=== PATIENT | male | born 1950 | race Caucasian/White ===

== ENCOUNTER 2017-06-11 21:44 | Inpatient (IN) | payer OTHER ==
--- NOTE | 2017-06-11 21:58 | EDPHY ---
H & P Stated Complaint: CHEST DISCOMFORT X 1-2 MONTHS HPI/ROS: HPI CHIEF COMPLAINT: Chest pain HISTORY OF PRESENT ILLNESS: This patient very pleasant 66-year-old male, significant past medical history for hypertension, he presents emergency room chest discomfort. Patient reports to me that over the past 2 months he has noticed intermittent chest discomfort. He notices it worse when he goes to lay down. Of note today he developed chest discomfort he describes it as uncomfortable sensation in his chest it did not radiate anywhere. He was extremely fatigued today he states he normally is not fatigued all. States that he help stack his neighbors wood today and became extremely fatigued after 3 wheel barrel's worth. This is unlikely him. He states his discomfort for approximately 6 hours today. He states over the past 2 months he has had this intermittently. He is due to see his cpc last week however his appointment was canceled in moved from 2 Wednesdays from now. Given the discomfort and fatigue decided come the emergency room. He is now chest pain- free. Denies any pleuritic pain. Denies shortness of breath. Denies recent illness. No abnormal leg swelling. Denies pain going anywhere. Past Medical History: Hypertension Past Surgical History: No recent surgery Social History: Drinks 4 beers per evening smokes very little marijuana, no current tobacco use. Family History: Denies ROS REVIEW OF SYSTEMS: A comprehensive 10 point review of systems is otherwise negative aside from elements mentioned in the history of present illness. Exam Constitutional appears well, nontoxic, triage nursing summary reviewed, vital signs reviewed, awake/alert. Blood pressure noted at triage to be high. Eyes normal conjunctivae and sclera, EOMI, PERRLA. HENT normal inspection, atraumatic, moist mucus membranes, no epistaxis, neck supple/ no meningismus, no raccoon eyes. Respiratory clear to auscultation bilaterally, normal breath sounds, no respiratory distress, no wheezing. Cardiovascular rate normal, regular rhythm, no murmur, no edema, distal pulses normal. Gastrointestinal rather large abdomen, soft, non-tender, no rebound, no guarding, normal bowel sounds, no distension, no pulsatile mass. Genitourinary no CVA tenderness. Musculoskeletal no midline vertebral tenderness, full range of motion, no calf swelling, no tenderness of extremities, no meningismus, good pulses, neurovascularly intact. Skin pink, warm, & dry, no rash, skin atraumatic. Neurologic awake, alert and oriented x 3, AAOx3, moves all 4 extremities equally, motor intact, sensory intact, CN II-XII intact, normal cerebellar, normal vision, normal speech. Psychiatric normal mood/affect. Heme/Lymph/Immune no lymphadenopathy. 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 Full-dose aspirin given. Re-evaluation: EKG interpretation by me on record in [facility] system. Impression time of EKG 2208, this is sinus rhythm rate of 74. I do not appreciate acute ischemia specifically no ST elevation ST depression T-wave abnormalities or prolonged intervals. ED x-ray chest one view cardiomegaly present. Otherwise unremarkable chest x- ray. 2322: This patient be admitted to the hospital service for further cardiac evaluation ACS rule out. In the emergency room he has no chest pain. Was given full-dose aspirin. His x-ray has been reviewed his EKG is nonischemic his troponin is negative. It is noted that he was hypertensive here in the emergency room. This trended downward without any intervention. He does tell me the blood pressures been chronically high. Despite taking losartan. I did recommend the patient that he gets blood pressure monitor at home as he does not have 1 week keep a close eye on his blood pressure. We need to continue to monitor his blood pressure. Source: Patient - Personal History Current Tetanus/Diphtheria Vaccine: Unsure Current Tetanus Diphtheria and Acellular Pertussis (TDAP): Unsure - Medical/Surgical History Hx Asthma: No Hx Chronic Respiratory Disease: No Hx Diabetes: No Hx Cardiac Disease: Yes Hx Renal Disease: No Hx Cirrhosis: No Hx Alcoholism: No Hx HIV/AIDS: No Hx Splenectomy or Spleen Trauma: No Other PMH: STRESS TEST 10/21. HTN, - Social History Smoking Status: Former smoker Constitutional: Initial Vital Signs Temperature (C) 37.0 C 06/11/17 21:47 Heart Rate 77 06/11/17 21:47 Respiratory Rate 18 06/11/17 21:47 O2 Sat (%) 96 06/11/17 21:47 O2 Delivery Mode Room Air Allergies/Adverse Reactions: No Known Allergies Allergy (Unverified 06/11/17 21:51) Home Medications: Medication Instructions Recorded Losartan Potassium [Cozaar 50 mg 100 mg PO DAILY 06/11/17 (*)] Aspirin [Aspirin 325 mg (*)] 325 mg PO DAILY 06/12/17 Ibuprofen [Motrin (*)] 200 mg PO DAILY PRN 06/12/17 Medical Decision Making - Data Points Laboratory Results: Laboratory Results 06/11/17 22:00 06/11/17 22:00 Medications Given: Aspirin (Aspirin) 325 mg PO DAILY ADELINE Stop: 12/09/17 09:14 Last Admin: 06/12/17 10:10 Dose: 325 mg Hydralazine HCl (Apresoline) 10 mg IVP Q1HR PRN PRN Reason: SBP Greater Than Stop: 12/09/17 00:30 Last Admin: 06/12/17 00:44 Dose: 10 mg Heparin Sodium (Porcine) (Heparin 50 Units/Ml (Premix)) 500 mls @ 0 mls/hr IV CONT ADELINE; Per Protocol PRN Reason: Protocol Stop: 12/09/17 17:44 Last Admin: 06/12/17 19:11 Dose: 500 mls Lorazepam (Ativan) 0.5 - 1 mg PO Q8HRS PRN PRN Reason: Anxiety, Able to Take PO Stop: 12/08/17 23:46 Last Admin: 06/12/17 02:11 Dose: 1 mg Losartan Potassium (Cozaar) 100 mg PO DAILY ADELINE Stop: 12/09/17 08:59 Last Admin: 06/12/17 08:26 Dose: 100 mg Nitroglycerin (Nitrostat) 0.4 mg SL Q5M PRN PRN Reason: Chest Pain Stop: 12/08/17 23:48 Last Admin: 06/12/17 01:38 Dose: 0.4 mg Discontinued Medications Aspirin (Aspirin) 324 mg PO EDNOW ONE Stop: 06/11/17 22:11 Last Admin: 06/11/17 22:42 Dose: 324 mg Diazepam (Valium) 5 mg PO ONCALL ONE Stop: 06/12/17 11:51 Last Admin: 06/12/17 17:12 Dose: Not Given Diphenhydramine HCl (Benadryl) 25 mg PO ONCALL ONE Stop: 06/12/17 11:51 Last Admin: 06/12/17 17:12 Dose: Not Given Enoxaparin Sodium (Lovenox) 40 mg SC DAILY ADELINE Stop: 12/09/17 08:59 Last Admin: 06/12/17 08:28 Dose: 40 mg Famotidine (Pepcid) 20 mg PO ONCALL ONE Stop: 06/12/17 11:51 Last Admin: 06/12/17 17:12 Dose: Not Given Heparin Sodium (Porcine) (Heparin Injection) 0 unit IVP ONCE ONE PRN Reason: Protocol Stop: 06/12/17 17:37 Last Admin: 06/12/17 19:10 Dose: 6.3 ml Nitroglycerin (Nitro-Bid 2%) 1 inch TP ONCE ONE Stop: 06/12/17 01:42 Last Admin: 06/12/17 01:50 Dose: 1 inch Departure - Departure Disposition: [facility] Inpatient Acute Clinical Impression: Chest pain Qualifiers: Chest pain type: unspecified Qualified Code(s): R07.9 - Chest pain, unspecified Hypertension Qualifiers: Hypertension type: essential hypertension Qualified Code(s): I10 - Essential ( primary) hypertension Condition: Fair
[2017-06-11] MEDS ORDERED: ASPIRIN 81 MG CHEWABLE TAB PO ONE (22:10)
--- NOTE | 2017-06-11 22:11 | CPEKG ---
Heart Rate: 74 RR Interval: 811 P-R Interval: 172 QRSD Interval: 86 QT Interval: 376 QTC Interval: 418 P [place]: 22 QRS [place]: -29 T Wave [place]: 60 EKG Severity - OTHERWISE NORMAL ECG - EKG Impression: SINUS RHYTHM EKG Impression: BORDERLINE LEFT AXIS DEVIATION Electronically Signed By: Wili Mccormack 12-Jun-2017 08:01:59
[2017-06-11 22:15] LABS: % IMMATURE GRANULYOCYTES 0.3 % (0.0-1.1); ABSOLUTE IMMATURE GRANULOCYTES 0.02 10^3/uL (0.00-0.10); ADD DIFF? NO; ADD MORPH? NO; ADD SCAN? NO; ATYPICAL LYMPHOCYTE FLAG 10 (0-99); FRAGMENT RBC FLAG 0 (0-99); HEMATOCRIT 49.7 % (40.0-51.0); HEMOGLOBIN 16.6 g/dL (13.7-17.5); LEFT SHIFT FLG 0 (0-99); LIPEMIA HEMOLYSIS FLAG 80 (0-99); MEAN CELL HEMOGLOBIN 29.1 pg (27.9-34.1); MEAN CELL HEMOGLOBIN CONCENTR. 33.4 g/dL (32.4-36.7); MEAN PLATELET VOLUME 9.3 fL (8.7-11.7); PLATELET CLUMPS FLAG 0 (0-99); PLATELET COUNT 229 10^3/uL (150-400); RED BLOOD CELL COUNT 5.71 10^6/uL (4.40-6.38)
[2017-06-11 22:31] LABS: INR 0.9 (0.83-1.16)
[2017-06-11 22:32] LABS: APTT 26.1 SEC (23.0-38.0)
[2017-06-11 22:34] LABS: ALANINE AMINOTRANSFERASE 41 IU/L (21-72); ALBUMIN 4.2 g/dL (3.5-5.0); ALKALINE PHOSPHATASE 79 IU/L (38-126); ANION GAP 12 mEq/L (8-16); ASPARTATE AMINOTRANSFERASE 25 IU/L (17-59); BILIRUBIN,TOTAL 0.6 mg/dL (0.1-1.4); BILIRUBIN-CONJUGATED 0.3 mg/dL (0.0-0.5); BILIRUBIN-UNCONJUGATED 0.3 mg/dL (0.0-1.1); CALCIUM 10.2 mg/dL (8.5-10.4); CARBON DIOXIDE 23 mEq/l (22-31); CHLORIDE 103 mEq/L (97-110); CREATININE 1.3 mg/dL (0.7-1.3); GLOMERULAR FILTRATION RATE 55; GLUCOSE 115 mg/dL (70-100); MAGNESIUM 2.1 mg/dL (1.6-2.3); POTASSIUM 4.1 mEq/L (3.5-5.2); SODIUM 138 mEq/L (134-144); TOTAL PROTEIN 7.6 g/dL (6.3-8.2)
[2017-06-11 22:43] LABS: TROPONIN I 0.014 ng/mL (0.000-0.034)
[2017-06-11] MEDS ORDERED: NS 1,000 ML IV SCH (23:45)
[2017-06-11] MEDS ORDERED: LORazepam 0.5 MG TAB PO PRN (23:47)
[2017-06-11] MEDS ORDERED: ACETAMINOPHEN 325 MG TAB PO PRN (23:47)
[2017-06-12] MEDS ORDERED: hydrALAZINE 20 MG/ML VIAL IVP PRN (00:31)
[2017-06-12] MEDS: NITROGLYCERIN 0.4 MG BTL SL PRN (01:38)
[2017-06-12] MEDS ORDERED: NITROGLYCERIN 2% 1 GM PACKET TP ONE (01:41)
[2017-06-12 05:31] LABS: % IMMATURE GRANULYOCYTES 0.2 % (0.0-1.1); ABSOLUTE IMMATURE GRANULOCYTES 0.01 10^3/uL (0.00-0.10); ADD DIFF? NO; ADD MORPH? NO; ADD SCAN? NO; ATYPICAL LYMPHOCYTE FLAG 10 (0-99); FRAGMENT RBC FLAG 0 (0-99); HEMATOCRIT 45.4 % (40.0-51.0); HEMOGLOBIN 15.2 g/dL (13.7-17.5); LEFT SHIFT FLG 0 (0-99); LIPEMIA HEMOLYSIS FLAG 80 (0-99); MEAN CELL HEMOGLOBIN 29.4 pg (27.9-34.1); MEAN CELL HEMOGLOBIN CONCENTR. 33.5 g/dL (32.4-36.7); MEAN CELL VOLUME 87.8 fL (81.5-99.8); MEAN PLATELET VOLUME 9.6 fL (8.7-11.7); PLATELET CLUMPS FLAG 0 (0-99); PLATELET COUNT 206 10^3/uL (150-400); RED BLOOD CELL COUNT 5.17 10^6/uL (4.40-6.38)
[2017-06-12 05:55] LABS: ANION GAP 9 mEq/L (8-16); CALCIUM 9.2 mg/dL (8.5-10.4); CARBON DIOXIDE 23 mEq/l (22-31); CHLORIDE 105 mEq/L (97-110); CREATININE 1.1 mg/dL (0.7-1.3); GLOMERULAR FILTRATION RATE > 60; GLUCOSE 128 mg/dL (70-100); POTASSIUM 3.9 mEq/L (3.5-5.2); SODIUM 137 mEq/L (134-144)
[2017-06-12 06:01] LABS: TROPONIN I 0.014 ng/mL (0.000-0.034)
--- NOTE | 2017-06-12 06:52 | GHP ---
[f rep st] HISTORY AND PHYSICAL DATE OF ADMISSION: 06/11/2017 The patient seen after midnight. CHIEF COMPLAINT: Chest pressure. HISTORY OF PRESENT ILLNESS: This is a very pleasant 66-year-old gentleman with past medical history significant for poorly controlled hypertension, obesity, who presents to the emergency department daron fine with complaints of worsening substernal pressure. Patient reports that he is unable to describe e xactly how the pain is feeling. The closest he can get is that it feels more like an aching pain. P andrzej reports that he has been experiencing intermittent chest discomfort and palpitations off and o n for the last 1-2 months. He was scheduled to follow up with Cardiology on Monday; however, to y, patient reports that he went to go help a neighbor stacking wood for the winter and during this ti me, patient developed more significant chest pain than he has experienced previously. It did not rad iate. He did not have any associated headache, changes in vision, lightheadedness, diaphoresis, or s hortness of breath. The patient denies any fevers or chills. The patient states that his chest pain did improve slightly after rest; however, , he continued to experience these symptoms, and [place], he felt he should be evaluated for his chest pa in. The patient does report he has had a stress test back in November of 2016, and it was reported to b e normal. Shortly after arrival to the medical floor, patient was complaining of chest pressure, 6/1 0, that was achy in nature, did not radiate, and no associated symptoms as above. Patient was given 1 nitroglycerin treatment sublingually in the emergency department with resolution of his chest pain temporarily. On the medical floor, patient again developed the substernal chest aching and denied an y other symptoms. It was also noted that patient's blood pressure was significantly elevated to the high 180s over 120s. The patient has been on losartan. He initially started off at a lower dose of 25 and has increased it twice to 50, and subsequently now on 100 without improvement in blood pressur es. Again, patient denies any shortness of breath, palpitations, headache, changes in vision, or lig htheadedness. REVIEW OF SYSTEMS: With the exception of , in which patient reports nocturia 2 or more times in e evening, remainder of review of systems is negative, except as noted above. ALLERGIES: No known drug allergies. HOME MEDICATIONS: Losartan 100 mg p.o. daily and aspirin 325 mg 1 tab p.o. daily. PAST MEDICAL HISTORY: Significant for benign essential hypertension, obesity, and occasional hay fev er. PAST SURGICAL HISTORY: Patient denies. FAMILY HISTORY: Significant for diabetes. SOCIAL HISTORY: The patient lives alone. He drinks 4 beers on a nightly basis. He has no history o f withdrawal symptoms. He does smoke occasional marijuana. The patient quit smoking 1-1/2 years ago and was previously smoking cigars. COR STATUS: His MD/POA is Pee Zimmerman, a friend, and patient states that his code status is full. PHYSICAL EXAMINATION: VITAL SIGNS: Upon arrival to the ER, blood pressure was 197/121, heart rate 7 5, respiratory rate 16, O2 saturation was 95% on room air, temperature was 37. On the hospital floor , blood pressure 175/100, heart rate 67, respiratory rate 16, O2 saturation 92% on room air, with a t emperature of 36.8. At bedside, after patient had received a sublingual nitroglycerin and also a nit roglycerin paste placement, his chest pain symptoms did resolve. The patient had noted some anxiety in addition. GENERAL: No acute distress. Pleasant, obese, elderly gentleman, who is resting quietl y on bed. HEAD: Normocephalic, atraumatic. EYES: Extraocular muscles grossly intact. Pupils equa l, round, and without any scleral icterus or conjunctival injection. ENT: Mucous membranes appear m oist. No pharyngeal erythema or exudates. NECK: Neck is supple. Trachea midline. CV: Patient wi th regular rate and rhythm. No murmurs, rubs, or gallops. Slightly distant heart sounds, likely sec ondary to body habitus. RESPIRATORY: Unlabored breathing. Lungs are clear to auscultation bilatera lly. No wheezes, rales, or rhonchi appreciated. ABDOMEN: Obese and protuberant, but not distended, soft. Positive bowel sounds. No rebound or guarding appreciated. : No Mariee in place. No supr apubic tenderness to palpation. EXTREMITIES: Patient with some maybe trace lower extremity edema. Patient with 1+ pedal pulses bilaterally. NEUROLOGIC: Grossly nonfocal exam. No facial drooping. Moves all extremities. Strength is 5/5 in upper and lower extremities. PSYCHIATRIC: Patient awake, alert, and oriented x4. He is pleasant, and thought process, content, and questions are appropriate . LABORATORY STUDIES: WBC 7.78, H and H 16.6 and 49.7, MCV 87, platelet count 229. No bands. PT is 12, INR 0.9, PTT is 26.1. Sodium is 138, potassium is 4.1, chloride 103, CO2 of 23, anion gap is 12, BUN 18, creatinine is 1.3, GFR 55,, glucose 115, calcium is 10.2. Magnesium is 2.1. Total bi lirubin is 0.6, ALT 41, AST 25, alkaline phosphatase 79. CK ordered for a.m. Troponin 0.014. BNP is 210. Total protein 7.6, albumin is 4.2, lipase 85. Chest x-ray: Image and report reviewed myself, showing mild cardiomegaly, poor inspiration with comp ressive changes in the lung bases. No consolidation, effusion. No evidence of pneumothorax. EKG, reviewed myself, showing normal sinus rhythm with a heart rate in the 70s. QTc is 410. Q-waves in aVL. No acute ST changes. ASSESSMENT/PLAN: Pleasant 66-year-old gentleman, who presents with complaints of intermittent chest pain with exertion. 1. Typical type symptoms; however, patient reports that he had a normal stress test in November and is followed by Cardiology. Suspect patient's chest pressure is related to his hypertensive urgency, as he reports his blood pressures have been more increasingly difficult to control, despite increase and quadrupling of his losartan from his initial dose. The patient would benefit from a secondary agent , but as he has some typical chest pain features and is followed by Cardiology, we will plan to repea t cardiac enzymes and further await recommendations. The patient would likely benefit from addition of a thiazide diuretic or beta sb. Currently, patient has responded quite well to nitroglycerin paste with resolution of his chest pain symptoms and improvement of his blood pressures. 2. Hypertensive urgency. Plan as above. 3. Anxiety. Ativan p.r.n. 4. Obesity. His lifestyle modifications were discussed with the patient and were highly recommended including weight loss and low-salt diet. 5. Daily alcohol consumption. Discussed with the patient and again counseled on lifestyle modificat ions and cessation. Patient is agreeable to this plan and will plan to stop drinking after discharge . Advised to monitor for any signs of withdrawal including tremor or increasing anxiety. Patient dr barbers 4 beers nightly. Again, Ativan is available p.r.n. 6. Fluids, electrolytes, nutrition. Continue with IV fluid overnight for gentle hydration. Electro lyte replacement p.r.n. and cardiac diet until midnight, and then n.p.o. 7. Prophylaxis. SCDs and Lovenox. DISPOSITION: Patient admitted to observation on the medical floor with continuous cardiac monitoring . Anticipate less than a 48-hour stay pending manageability of patient's blood pressures and new ant ihypertensive therapy as per Cardiology. /[id number]/MODL
[2017-06-12] MEDS: LOSARTAN POTASSIUM 50 MG TAB PO SCH (08:26)
[2017-06-12] MEDS ORDERED: ENOXAPARIN 40 MG/0.4 ML SYR SC SCH (09:00)
[2017-06-12] MEDS ORDERED: IBUPROFEN 200 MG TAB PO PRN (09:04)
[2017-06-12] MEDS: ASPIRIN 325 MG TAB PO SCH (10:10)
[2017-06-12] MEDS ORDERED: fentaNYL 100 MCG/2 ML INJ ONE (11:29)
[2017-06-12] MEDS ORDERED: LIDOCAINE 1% 300 MG/30 ML SDV ONE (11:29)
[2017-06-12] MEDS ORDERED: HEPARIN 10,000 UNIT/10 ML MDV ONE (11:30)
[2017-06-12] MEDS ORDERED: MIDAZOLAM 2 MG/2 ML VIAL ONE (11:30)
[2017-06-12] MEDS ORDERED: VERAPAMIL 5 MG/2 ML VIAL ONE (11:30)
[2017-06-12] MEDS ORDERED: IOPAMIDOL (ISOVUE-370) 150 ML BTL IV ONE (11:30)
--- NOTE | 2017-06-12 11:49 | PDHPUP ---
History & Physical Update H&P update statement: This history and physical update is based on an assessment of the patient which was completed after admission or registration (within 24 hours), but prior to the surgery/procedure. H&P update: H&P reviewed & patient examined, no change in patient's condition since H&P completed
--- NOTE | 2017-06-12 11:49 | PDPROPOC ---
Sedation Plan of Care Sedation Plan of Care: vital signs stable, mental status noted, patient educated of risks, benefits, alternatives, patient can tolerate sedation ASA Classification: ASA 2 Planned drugs: fentanyl, midazolam Mallampati Reference Image: Patient passed 3-3-2 rule?: No
[2017-06-12] MEDS ORDERED: FAMOTIDINE 20 MG TAB PO ONE (11:50)
[2017-06-12] MEDS ORDERED: diphenhydrAMINE 25 MG CAP PO ONE (11:50)
[2017-06-12] MEDS ORDERED: DIAZEPAM 5 MG TAB PO ONE (11:50)
[2017-06-12] MEDS ORDERED: NS 1,000 ML IV SCH (12:00)
--- NOTE | 2017-06-12 12:23 | PDCARCONS ---
Cardiology Consult Reason for Consult: Chest discomfort Chief Complaint: Chest pressure Requesting Physician: Juan History of Present Illness: 66-year-old male history of hypertension admitted to the hospital with recurrent substernal chest pressure beginning with exertion relieved with rest and nitroglycerin. Patient was initially seen June 242015 by Dr. Edinson Suárez. At that point he was complaining of several months of sporadic episodes of left upper chest discomfort usually at nighttime. This pain did not radiate to the jaw or arm. Was not associated with nausea vomiting or diaphoresis. 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 Yesterday he developed the acute onset of pressure again. It was associated with lightheadedness and dizziness. He went home with rested somewhat improved but over 4 hours did not resolve. He came to the emergency department where he was admitted. He was relieved of symptoms with oxygen, nitroglycerin. This morning his pain free. The pain did not radiate to the back or arm. Did not radiate to the jaw. It was not associated with nausea vomiting or diaphoresis. Total time with discomfort was approximately 4 0.5 hours. He had an exercise tolerance test performed on September 06. At that time he went 6 minutes on the Carlo protocol. He reached 93% of his maximum predicted heart rate response. Blood pressure was 212/108. He had no EKG changes concerning for ischemia at this workload. Patient denies PND orthopnea. He has had no syncope or near syncope. Cardiac risk include hypertension, age, male sex. He has no family history of early heart disease. No history of diabetes. Lipid status is still unknown. History Information - Allergies/Home Medication List Allergies/Adverse Reactions: No Known Allergies Allergy (Unverified 06/11/17 21:51) Home Medications: Losartan Potassium [Cozaar 50 mg (*)] 100 mg PO DAILY 06/11/17 [Last Taken 06/11] Aspirin [Aspirin 325 mg (*)] 325 mg PO DAILY 06/12/17 [Last Taken 06/11/17] Ibuprofen [Motrin (*)] 200 mg PO DAILY PRN 06/12/17 [Last Taken Unknown] I have personally reviewed and updated: family history, medical history, social history, surgical history Past Medical History: - Past Medical History hypertension - Family History Positive for: non-pertinent - Social History Smoking Status: Former smoker Alcohol Use: Other (Daily 4 beers) Cardiac History - Cardiac History Cardiac Risk Factors: hypertension (>140/90), age > 65, male Timing/Duration: Days Severity: severe Severity Scale: 8 Location: substernal Activities at Onset: activity Modifying Factors: improves with: nitroglycerin Associated Symptoms: other (Dizziness, weakness) COURTNEY Risk Evaluation age greater or equal to 65: yes greater or equal to 3 CAD risk factors: yes known CAD(stenosis greater or eqaul to 50%): no ASA use in past 7 days: yes severe angina(greater or equal to 2 episodes in 24hrs): yes EKG ST changes greater or equal to 0.5mm: no positive cardiac marker: no Total Score: 4 COURTNEY Score: 19.9% risk Physical Exam Physical Exam: Temp Pulse Resp BP Pulse Ox 36.5 C 83 16 165/117 H 94 06/12/17 11:47 06/12/17 11:47 06/12/17 11:47 06/12/17 11:47 06/12/17 11:47 Constitutional: no apparent distress, appears nourished Eyes: PERRL, anicteric sclera, EOMI, No icteric sclera Ears, Nose, Mouth, Throat: moist mucous membranes Cardiovascular: regular rate and rhythym, no murmur, rub, or gallop, pulses symmetric bilaterally, No JVD, No carotid bruit Peripheral Pulses: 1+: carotid (R), carotid (L), femoral (R), femoral (L), dorsalis-pedis (R), dorsalis-pedis (L) Respiratory: no respiratory distress, no rales or rhonchi Gastrointestinal: normoactive bowel sounds, soft, non-tender abdomen, no palpable masses Genitourinary: no bladder fullness Skin: warm, normal color, No rash Musculoskeletal: full muscle strength, no muscle tenderness Neurologic: AAOx3, sensation intact bilaterally, No weakness, No facial droop Psychiatric: interacting appropriately, not anxious Lymph, Heme, Immunologic: no cervical LAD, no supraclavicular LAD Lab and Imaging 06/12/17 04:54 06/12/17 04:54 WBC 6.34 10^3/uL (3.80-9.50) 06/12/17 04:54 RBC 5.17 10^6/uL (4.40-6.38) 06/12/17 04:54 Hgb 15.2 g/dL (13.7-17.5) 06/12/17 04:54 Hct 45.4 % (40.0-51.0) 06/12/17 04:54 MCV 87.8 fL (81.5-99.8) 06/12/17 04:54 MCH 29.4 pg (27.9-34.1) 06/12/17 04:54 MCHC 33.5 g/dL (32.4-36.7) 06/12/17 04:54 RDW 13.0 % (11.5-15.2) 06/12/17 04:54 Plt Count 206 10^3/uL (150-400) 06/12/17 04:54 MPV 9.6 fL (8.7-11.7) 06/12/17 04:54 Neut % (Auto) 67.2 % (39.3-74.2) 06/12/17 04:54 Lymph % (Auto) 21.1 % (15.0-45.0) 06/12/17 04:54 [place]ock % (Auto) 6.3 % (4.5-13.0) 06/12/17 04:54 Eos % (Auto) 4.6 % (0.6-7.6) 06/12/17 04:54 Baso % (Auto) 0.6 % (0.3-1.7) 06/12/17 04:54 Nucleat RBC Rel Count 0.0 % (0.0-0.2) 06/12/17 04:54 Absolute Neuts (auto) 4.26 10^3/uL (1.70-6.50) 06/12/17 04:54 Absolute Lymphs (auto) 1.34 10^3/uL (1.00-3.00) 06/12/17 04:54 Absolute Monos (auto) 0.40 10^3/uL (0.30-0.80) 06/12/17 04:54 Absolute Eos (auto) 0.29 10^3/uL (0.03-0.40) 06/12/17 04:54 Absolute Basos (auto) 0.04 10^3/uL (0.02-0.10) 06/12/17 04:54 Absolute Nucleated RBC 0.00 10^3/uL (0-0.01) 06/12/17 04:54 Immature Gran % 0.2 % (0.0-1.1) 06/12/17 04:54 Immature Gran # 0.01 10^3/uL (0.00-0.10) 06/12/17 04:54 PT 12.0 SEC (12.0-15.0) 06/11/17 22:00 INR 0.90 (0.83-1.16) 06/11/17 22:00 APTT 26.1 SEC (23.0-38.0) 06/11/17 22:00 Sodium 137 mEq/L (134-144) 06/12/17 04:54 Potassium 3.9 mEq/L (3.5-5.2) 06/12/17 04:54 Chloride 105 mEq/L (97-110) 06/12/17 04:54 Carbon Dioxide 23 mEq/l (22-31) 06/12/17 04:54 Anion Gap 9 mEq/L (8-16) 06/12/17 04:54 BUN 15 mg/dL (7-23) 06/12/17 04:54 Creatinine 1.1 mg/dL (0.7-1.3) 06/12/17 04:54 Estimated GFR > 60 06/12/17 04:54 Glucose 128 mg/dL (70-100) H 06/12/17 04:54 Calcium 9.2 mg/dL (8.5-10.4) 06/12/17 04:54 Magnesium 2.1 mg/dL (1.6-2.3) 06/11/17 22:00 Total Bilirubin 0.6 mg/dL (0.1-1.4) 06/11/17 22:00 Conjugated Bilirubin 0.3 mg/dL (0.0-0.5) 06/11/17 22:00 Unconjugated Bilirubin 0.3 mg/dL (0.0-1.1) 06/11/17 22:00 AST 25 IU/L (17-59) 06/11/17 22:00 ALT 41 IU/L (21-72) 06/11/17 22:00 Alkaline Phosphatase 79 IU/L (38-126) 06/11/17 22:00 Creatine Kinase 84 IU/L (0-224) 06/12/17 04:54 Troponin I 0.014 ng/mL (0.000-0.034) 06/12/17 04:54 NT-Pro-B Natriuret Pep 210 pg/mL (0-125) H 06/11/17 22:00 Total Protein 7.6 g/dL (6.3-8.2) 06/11/17 22:00 Albumin 4.2 g/dL (3.5-5.0) 06/11/17 22:00 Lipase 85 IU/L (23-300) 06/11/17 22:00 TSH 8.050 uIU/mL (0.465-4.680) H 06/12/17 04:54 EKG additional interpertation: Sinus rhythm without acute ST-T changes. Exercise tolerance test September 06. Exercise time 6 minutes, peak blood pressure 212/108 with no EKG changes concerning for ischemia. A/P Assessment: 66-year-old male with 3 cardiovascular risk factors, atypical chest pain with 2/ 3 typical features admitted with exertional chest pressure. Cardiac enzymes remain negative for acute injury. EKG does not suggest acute injury. Symptoms relieved with nitroglycerin and rest. Patient has had a noninvasive test which was considered low risk. COURTNEY risk score suggest 20% event rate. In light of resting symptoms lasting for hours, multiple risk factors, inconclusive noninvasive evaluation, would proceed with a diagnostic coronary angiogram today. Risks and benefits of this discussed with the patient. Will proceed from the right radial artery. Further recommendations pending results. Plan: Diagnostic coronary angiogram. Lipid profile. Continue control blood pressure. Past Medical History PMH: - Personal History Current Tetanus/Diphtheria Vaccine: Unsure Current Tetanus Diphtheria and Acellular Pertussis (TDAP): Unsure - Medical/Surgical History Hx Asthma: No Hx Chronic Respiratory Disease: No Hx Cardiac Disease: Yes Hx Diabetes: No Hx Renal Disease: No Hx Alcoholism: No Hx Cirrhosis: No Hx HIV/AIDS: No Hx Splenectomy or Spleen Trauma: No Other PMH: STRESS TEST 10/21. HTN, - Social History Smoking Status: Former smoker Alcohol Use: Heavy Additional Social History: Review of Systems Review of Systems: - Review of Systems Constitutional: weakness. denies: chills, fever EENTM: no symptoms reported Respiratory: no symptoms reported Cardiac: chest pain. denies: edema, irregular heart rate, lightheadedness, palpitations, syncope Gastrointestinal/Abdominal: no symptoms reported Genitourinary: no symptoms Musculoskelatal: no symptoms Skin: no symptoms Neurological: no symptoms Hematologic/Lymphatic: no symptoms reported Immunologic/allergic: no symptoms reported
[2017-06-12 12:28] LABS: % IMMATURE GRANULYOCYTES 0.2 % (0.0-1.1); ABSOLUTE IMMATURE GRANULOCYTES 0.01 10^3/uL (0.00-0.10); ADD DIFF? NO; ADD MORPH? NO; ADD SCAN? NO; ATYPICAL LYMPHOCYTE FLAG 0 (0-99); FRAGMENT RBC FLAG 0 (0-99); HEMATOCRIT 47.8 % (40.0-51.0); HEMOGLOBIN 16.3 g/dL (13.7-17.5); LEFT SHIFT FLG 0 (0-99); LIPEMIA HEMOLYSIS FLAG 90 (0-99); MEAN CELL HEMOGLOBIN 29.7 pg (27.9-34.1); MEAN CELL HEMOGLOBIN CONCENTR. 34.1 g/dL (32.4-36.7); MEAN CELL VOLUME 87.1 fL (81.5-99.8); PLATELET CLUMPS FLAG 0 (0-99); PLATELET COUNT 205 10^3/uL (150-400); RED BLOOD CELL COUNT 5.49 10^6/uL (4.40-6.38)
[2017-06-12 12:38] LABS: INR 1.04 (0.83-1.16); PROTIME(PATIENT) 13.5 SEC (12.0-15.0)
[2017-06-12 12:39] LABS: APTT 30.8 SEC (23.0-38.0)
[2017-06-12 12:46] LABS: ANION GAP 8 mEq/L (8-16); CALCIUM 9.6 mg/dL (8.5-10.4); CARBON DIOXIDE 23 mEq/l (22-31); CHLORIDE 105 mEq/L (97-110); CHOLESTEROL 215 mg/dL (140-220); CHOLESTEROL/HDL RATIO 5.38 RATIO (1.00-4.97); CREATININE 1.1 mg/dL (0.7-1.3); GLOMERULAR FILTRATION RATE > 60; GLUCOSE 104 mg/dL (70-100); HIGH DENSITY LIPOPROTEIN 40 mg/dL (40-65); LDL/HDL RATIO 3.58 RATIO (1.00-3.64); LOW DENSITY LIPOPROTEIN 143 mg/dL (80-100); NON-HIGH DENSITY LIPOPROTEIN 175 mg/dL (90-129); SODIUM 136 mEq/L (134-144); TRIGLYCERIDE 163 mg/dL (40-150); VERY LOW DENSITY LIPOPROTEINS 32 mg/dL (8-25)
[2017-06-12] MEDS ORDERED: ATROPINE SULFATE 1 MG/10 ML SYR IVP PRN (13:58)
--- NOTE | 2017-06-12 14:01 | HOSPPROG ---
Hospitalist Progress Note Assessment/Plan: Patient with exertional symptoms of chest pain relieved with rest and nitroglycerin. Reviewed Cardiology note who plans on taking him to the phlebotomy lab assistant for diagnostic angiography. Disposition for patient will depend upon those results. Other medical issues include hypertension Subjective: Had some chest pain yesterday but has been pain-free since took nitroglycerin. Patient new to me and chart reviewed. Objective: Vital Signs Temp Pulse Resp BP Pulse Ox 36.5 C 83 16 165/117 H 94 06/12/17 11:47 06/12/17 11:47 06/12/17 11:47 06/12/17 11:47 06/12/17 11:47 Laboratory Results 06/12/17 12:15 06/12/17 12:15 06/11/17 06/12/17 06/13/17 05:59 05:59 05:59 Intake Total 0 Balance 0 PT 13.5 SEC (12.0-15.0) 06/12/17 12:15 INR 1.04 (0.83-1.16) 06/12/17 12:15 - Physical Exam Constitutional: no apparent distress, obese Cardiovascular: regular rate and rhythym Respiratory: no respiratory distress ICD10 Worksheet Patient Problems: Problems Problem Status Onset Chest pain Acute Hypertension Acute
--- NOTE | 2017-06-12 14:10 | PDDXCAT ---
Diagnostic Cath Note - . Date: 06/12/17 Manager Dish: Maximino [employer] Specialist: Maximino Indication: CCC Class III and IV angina on medical treatment - Procedure Access: right wrist Procedure: left heart catheterization, coronary angiography, left ventriculogram - Materials Left Heart Cath size: 5F Left Heart Cath materials: JL3.5, JR4.0, pigtail - Findings-Left Heart Catheterization LM: 80% ulcerated mid-body left main stenosis. LAD: unobstructed LCX: unobstructed. RCA: dominant: unobstructed. EDP: 12 mmHg LVEF: 60% Wall motion: normal Complications: none Estimated blood loss: <50ml Closure method: TR Band Assessment: Procedure: Please see computer report. Contrast: 80 cc. Sedation: 1 mg Verseed, 25ug fentanyl. Radiation: 5.3 minutes. 102uGy. Conclusion: Left main stenosis with ulceration. Normal LV systolic function. Plan: CABG versus High risk PCI Intervention: Procedure: Intra-vascular ultrasound of the left main. Patient was anti-coagulated with heparin. A 5 maori JL 3.5 guide was used to intubate the left main. A 0.014 Luge wire was used to cross the left main and placed distally. Intravascular ultrasound was performed. This revealed a ulcerated left main stenosis. Conclusion: Unstable angina with ulcerated left5 main stenosis. CABG versus high risk PCI. At his age of 66 would favor CABG Patient Problems: Problems Problem Status Onset Chest pain Acute Hypertension Acute
[2017-06-12] MEDS ORDERED: HEPARIN 10,000 UNIT/10 ML MDV IVP PRN (17:36)
[2017-06-12] MEDS ORDERED: HEPARIN 10,000 UNIT/10 ML MDV IVP ONE (17:36)
[2017-06-12 18:35] LABS: % IMMATURE GRANULYOCYTES 0.3 % (0.0-1.1); ABSOLUTE IMMATURE GRANULOCYTES 0.02 10^3/uL (0.00-0.10); ADD DIFF? NO; ADD MORPH? NO; ADD SCAN? NO; ATYPICAL LYMPHOCYTE FLAG 0 (0-99); FRAGMENT RBC FLAG 0 (0-99); HEMATOCRIT 46.7 % (40.0-51.0); HEMOGLOBIN 15.7 g/dL (13.7-17.5); LEFT SHIFT FLG 0 (0-99); LIPEMIA HEMOLYSIS FLAG 80 (0-99); MEAN CELL HEMOGLOBIN 29.7 pg (27.9-34.1); MEAN CELL HEMOGLOBIN CONCENTR. 33.6 g/dL (32.4-36.7); MEAN CELL VOLUME 88.4 fL (81.5-99.8); MEAN PLATELET VOLUME 9.7 fL (8.7-11.7); PLATELET CLUMPS FLAG 0 (0-99); PLATELET COUNT 206 10^3/uL (150-400); RED BLOOD CELL COUNT 5.28 10^6/uL (4.40-6.38)
[2017-06-12 18:41] LABS: INR 1.06 (0.83-1.16); PROTIME(PATIENT) 13.7 SEC (12.0-15.0)
[2017-06-12 18:42] LABS: APTT 37.4 SEC (23.0-38.0)
--- NOTE | 2017-06-12 19:05 | GCON ---
[f rep st] CONSULTATION DATE OF CONSULTATION: 06/12/2017 The patient is seen at request of Dr. Ivan Stanton with the patient's permission. IMPRESSION: 1. Unstable angina pectoris with a proximal left main ruptured plaque and normal left ventricular fu nction. 2. Obesity. 3. Moderate alcohol consumption on a regular basis. 4. Cdk-dxkcinb-nhqlhflec diabetes mellitus by history. 5. Hypertension. RECOMMENDATIONS: This gentleman should stay in the hospital and undergo urgent coronary artery revas cularization on this admission. He is tentatively scheduled to undergo surgery Monday and should he have refractory chest pain, we would proceed sooner given the coronary anatomy. Risks and complications were reviewed at length with the patient and his family. Overall mortality is 1%. St roke, bleeding, infection are all 1%. CHIEF COMPLAINT: This 66-year-old gentleman presented with unstable angina pectoris symptoms. He un derwent diagnostic left heart cath today and was noted to have plaque rupture in the proximal portion of the left main coronary artery. Distal targets appear to be good quality. LV function is stable. Please see cath report for details. MEDICAL HISTORY: As stated. FAMILY HISTORY: Noncontributory for coronary disease. Socially, he drinks 4 beers per night. He has no history of withdrawal symptoms. He lives alone. Samantha hooker is accompanied currently by his and children who seem very supportive. Socially also, he quit smoking cigars 1-1/2 years ago and only smoked them occasionally. He does occasionally smoke mariju faith. REVIEW OF SYSTEMS: Except for chief complaint, he is currently asymptomatic, lying comfortably in be d without chest pain. PHYSICAL EXAM: GENERAL: Obese middle-aged gentleman, appears older than stated age. VITAL SIGNS: B lood pressure is 127/80, pulse 95, respirations 18 nonlabored, O2 saturation is 92% on room air. LISA NT: Normocephalic. CESAR, EOMI. NECK: Without bruits. HEART: Rate is regular. LUNGS: Clear. ABDOMEN: Protuberant, nontender. Bowel sounds are active. EXTREMITIES: Pedal pulses are 2+. No e sue. No varicosities. /[id number]/MODL
[2017-06-12] MEDS: HEPARIN/DEXTROSE 500 ML IV SCH (19:11)
[2017-06-13] MEDS: LOSARTAN POTASSIUM 50 MG TAB PO SCH (10:05)
[2017-06-13] MEDS: ASPIRIN 325 MG TAB PO SCH (10:05)
[2017-06-13] MEDS: METOPROLOL TARTRATE 50 MG TAB PO SCH ×2 (10:05→20:41)
[2017-06-13] MEDS: ATORVASTATIN CALCIUM 40 MG TAB PO SCH (10:05)
[2017-06-13] MEDS: HEPARIN/DEXTROSE 500 ML IV SCH (11:13)
[2017-06-13 11:30] LABS: HEMOGLOBIN A1C 6.3 % (4.0-6.0)
--- NOTE | 2017-06-13 12:14 | HOSPPROG ---
Hospitalist Progress Note Assessment/Plan: 66-year-old man with high blood pressure presents with exertional chest pain. Angiogram revealed left main disease and he has been seen and evaluated by cardiothoracic surgery and plans on 2 vessel bypass tomorrow. He has been pain free over the last 24 hours. # coronary artery disease: Bypass tomorrow, will likely sign off unless wishes us to continue to follow. # hypertension continue to follow and treat as needed. Subjective: Patient doing well. No chest pain or shortness of breath Objective: Vital Signs Temp Pulse Resp BP Pulse Ox 36.7 C 74 16 171/103 H 91 L 06/13/17 07:32 06/13/17 07:32 06/13/17 07:32 06/13/17 07:32 06/13/17 07:32 Laboratory Results 06/12/17 17:55 06/12/17 12:15 06/12/17 06/13/17 06/14/17 05:59 05:59 05:59 Intake Total 0 1230 Balance 0 1230 PT 13.7 SEC (12.0-15.0) 06/12/17 17:55 INR 1.06 (0.83-1.16) 06/12/17 17:55 - Physical Exam Constitutional: no apparent distress Eyes: PERRL, EOMI Cardiovascular: regular rate and rhythym Respiratory: no respiratory distress, no rales or rhonchi, clear to auscultation Neurologic: AAOx3 Psychiatric: interacting appropriately ICD10 Worksheet Patient Problems: Problems Problem Status Onset Chest pain Acute Hypertension Acute
--- NOTE | 2017-06-13 14:18 | PDMN ---
Medical Necessity Medical necessity: cardiac cath: Unstable angina pectoris prox. L main ruptured plaque - Pt status changed to INPT for ongoing med nec. Cardiac cath revealed 2 vessel CABG needed sgy pend. S390 4 days- inpt only
--- NOTE | 2017-06-13 15:07 | ASMTCMCOM ---
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 Per pt "I'm fully functional" and active prior to admission. We discussed likely length of stay, encouraged pt to ask nursing staff and MD's questions re: expected recovery. Case Management d/c poc: To be determined. Case Management to follow. Date Signed: 06/13/2017 03:07 PM Electronically Signed By:Sosa Velazquez RN
[2017-06-13] MEDS ORDERED: MUPIROCIN 2% 22 GM OINT NS ONE (15:43)
--- NOTE | 2017-06-13 16:11 | PDCARPN ---
Cardiology Progress Note Assessment/Plan: Coronary Artery Disease- presented with unstable angina; no evidence of infarction; no further chest discomfort; preserved LV function. CABG in a.m. Aggressive secondary prevention. Hypertension- marginally controlled on current doses of ARB and beta sb. Will reassess medication needs postoperatively. Hyperlipidemia-goal LDL is less than 70; currently at 143. Statin initiated. 06/13/17 16:09 Subjective: No complaints. Reviewed/Discussed With: family Objective: Vital Signs (8 Hrs) Temp Pulse Resp BP Pulse Ox 06/13/17 15:05 36.9 C 71 18 128/69 H 92 Result Diagrams: 06/12/17 17:55 06/12/17 12:15 - Physical Exam Constitutional: WDWN, no apparent distress Eyes: anicteric sclera Ears, Nose, Mouth, Throat: moist mucous membranes Cardiovascular: regular rate and rhythm, no murmurs, no rubs, no gallops Respiratory: clear to auscultate bilat Gastrointestinal: normoactive bowel sounds, no tenderness, no masses Skin: no rashes, no edema Neurologic: AAOx3 Psychiatric: not anxious ICD10 Worksheet Patient Problems: Problems Problem Status Onset Chest pain Acute Hypertension Acute
[2017-06-13] MEDS: MUPIROCIN 2% 22 GM OINT NS SCH (20:42)
[2017-06-13] MEDS ORDERED: CHLORHEXIDINE GLUC HIBICLENS 118 ML BTL TP SCH (21:00)
[2017-06-14] MEDS: NITROGLYCERIN 0.4 MG BTL SL PRN ×3 (03:22→03:34)
--- NOTE | 2017-06-14 03:32 | CPEKG ---
Heart Rate: 63 RR Interval: 952 P-R Interval: 184 QRSD Interval: 90 QT Interval: 404 QTC Interval: 414 P Dwarf: 41 QRS Dwarf: -21 T Wave Dwarf: 57 EKG Severity - OTHERWISE NORMAL ECG - EKG Impression: SINUS RHYTHM EKG Impression: BORDERLINE LEFT AXIS DEVIATION Electronically Signed By: Jonah He 18-Jun-2017 09:01:25
[2017-06-14 04:05] LABS: HEMATOCRIT 44.5 % (40.0-51.0); MEAN CELL HEMOGLOBIN 29.6 pg (27.9-34.1); MEAN CELL HEMOGLOBIN CONCENTR. 33.7 g/dL (32.4-36.7); MEAN CELL VOLUME 87.8 fL (81.5-99.8); RED BLOOD CELL COUNT 5.07 10^6/uL (4.40-6.38)
[2017-06-14 04:34] LABS: ALANINE AMINOTRANSFERASE 29 IU/L (21-72); ALBUMIN 3.5 g/dL (3.5-5.0); ALKALINE PHOSPHATASE 57 IU/L (38-126); ANION GAP 7 mEq/L (8-16); ASPARTATE AMINOTRANSFERASE 21 IU/L (17-59); BILIRUBIN,TOTAL 0.9 mg/dL (0.1-1.4); CALCIUM 9.4 mg/dL (8.5-10.4); CARBON DIOXIDE 24 mEq/l (22-31); CHLORIDE 105 mEq/L (97-110); CREATININE 1.2 mg/dL (0.7-1.3); GLOMERULAR FILTRATION RATE > 60; GLUCOSE 124 mg/dL (70-100); POTASSIUM 4.5 mEq/L (3.5-5.2); SODIUM 136 mEq/L (134-144); TOTAL PROTEIN 6.5 g/dL (6.3-8.2)
[2017-06-14 04:46] LABS: CREATINE KINASE-MB FRACTION 0.76 ng/mL (0.00-3.19); TROPONIN I 0.039 ng/mL (0.000-0.034)
[2017-06-14] MEDS ORDERED: ATROPINE SULFATE 1 MG/10 ML SYR ONE (05:23)
[2017-06-14] MEDS ORDERED: CITRATE DEXTROSE SOLN 500 ML BAG MISC ONE (06:00)
[2017-06-14] MEDS ORDERED: PHENYLEPHRINE HCL 50 MG in NS 250 ML IV ONE (06:00)
[2017-06-14] MEDS ORDERED: VERAPAMIL 5 MG, NITROGLYCERIN 2.5 MG, HEPARIN 500 UNIT, SODIUM BICARBONATE 0.2 MEQ in L... MISC ONE (06:00)
[2017-06-14] MEDS ORDERED: SODIUM BICARBONATE 20 MEQ, LIDOCAINE 1% 10 ML in NORMOSOL-R 1,000 ML MISC ONE (06:00)
[2017-06-14] MEDS ORDERED: AMINOCAPROIC ACID 5 GM/20 ML VIAL IV ONE (06:00)
[2017-06-14] MEDS ORDERED: NOREPINEPHRINE BITARTRATE 16 MG in NS 250 ML IV ONE (06:00)
[2017-06-14] MEDS ORDERED: ceFAZolin 2 GM/DEXTROSE 100 ML IV ONE (06:00)
[2017-06-14] MEDS ORDERED: MUPIROCIN 2% 22 GM OINT NS ONE (06:00)
[2017-06-14] MEDS ORDERED: MANNITOL 20% 50 GM/250 ML BAG IV ONE (06:00)
[2017-06-14] MEDS ORDERED: niCARdipine/NACL 200 ML IV SCH (06:00)
[2017-06-14] MEDS ORDERED: INSULIN REGULAR HUMAN 100 UNIT in NS 100 ML IV ONE (06:00)
[2017-06-14] MEDS ORDERED: ALBUMIN 5% 250 ML BOTTLE IV ONE (06:24)
[2017-06-14] MEDS ORDERED: PROTAMINE SULFATE 50 MG/5 ML VIAL IVP ONE (06:24)
[2017-06-14] MEDS ORDERED: niCARdipine/NACL/200 ML BAG IV ONE (06:25)
[2017-06-14] MEDS ORDERED: CALCIUM CHLORIDE 1 GM/10 ML INJ ONE (06:25)
[2017-06-14] MEDS ORDERED: LIDOCAINE 2% 100 MG/5 ML SYR ONE (06:25)
[2017-06-14] MEDS ORDERED: CITRATE DEXTROSE SOLN 500 ML BAG ONE (06:25)
[2017-06-14] MEDS ORDERED: AMINOCAPROIC ACID 5 GM/20 ML VIAL ONE (06:25)
[2017-06-14] MEDS ORDERED: NA BICARBONATE 50 MEQ/50 ML VIAL ONE (06:25)
[2017-06-14] MEDS ORDERED: MILRINONE/DEXTROSE/100 ML BAG IV ONE (06:25)
[2017-06-14] MEDS ORDERED: DOPamine/DEXTROSE/250 ML BAG IV ONE (06:25)
[2017-06-14] MEDS ORDERED: POTASSIUM Cl (KCl) 20 MEQ/50 ML BAG IV ONE (06:25)
[2017-06-14] MEDS ORDERED: methylPREDNISolone SOD SUCC 1 GM/8 ML VIAL ONE (06:26)
[2017-06-14] MEDS ORDERED: ADENOSINE 6 MG/2 ML VIAL ONE (06:26)
[2017-06-14] MEDS ORDERED: HEPARIN 10,000 UNIT/10 ML MDV ONE (06:26)
[2017-06-14] MEDS ORDERED: AMIODARONE HCL 150 MG/3 ML VIAL ONE (06:26)
[2017-06-14] MEDS ORDERED: MAGNESIUM SULFATE 1 GM/2 ML VIAL ONE (06:26)
[2017-06-14] MEDS ORDERED: ceFAZolin 1 GM VIAL ONE (06:26)
[2017-06-14] MEDS ORDERED: LR 1,000 ML IV ONE (08:16)
[2017-06-14] MEDS ORDERED: MIDAZOLAM 2 MG/2 ML VIAL IVP ONE (08:26)
--- NOTE | 2017-06-14 08:28 | PDANEPAE ---
ANE History of Present Illness here for cabg, unstable angina ANE Past Medical History - Cardiovascular History Hx Hypertension: Yes Hx Coronary Artery / Peripheral Vascular Disease: Yes Hx CHF / Valvular Disease: No Hx Palpitations: No - Pulmonary History Hx COPD: No Hx Asthma/Reactive Airway Disease: No Hx Recent Upper Respiratory Infection: No Hx Oxygen in Use at Home: No Hx Sleep Apnea: No Sleep Apnea Screening Result - Last Documented: Positive - Endocrine History Hx Diabetes: No Hypothyroid: No Hyperthyroid: No Obesity: moderate - Renal History Hx Renal Disorders: No - Liver History Hx Hepatic Disorders: No - Neurological & Psychiatric Hx Hx Neurological and Psychiatric Disorders: No - Congenital Disorder History Hx Congenital Disorders: No - Chronic Pain History Chronic Pain: No ANE Review of Systems Review of systems is: negative Review of Systems: - Exercise capacity Exercise capacity: <4 METS ANE Patient History - Allergies Allergies/Adverse Reactions: No Known Allergies Allergy (Unverified 06/11/17 21:51) - Home Medications Home medications: home medication list seen and reviewed Home Medications: Losartan Potassium [Cozaar 50 mg (*)] 100 mg PO DAILY 06/11/17 [Last Taken 06/11] Aspirin [Aspirin 325 mg (*)] 325 mg PO DAILY 06/12/17 [Last Taken 06/11/17] Ibuprofen [Motrin (*)] 200 mg PO DAILY PRN 06/12/17 [Last Taken Unknown] - NPO status NPO Status: no food or drink >8 hours NPO Since - Liquids (Date): 06/14/17 NPO Since - Liquids (Time): 00:00 NPO Since - Solids (Date): 06/14/17 NPO Since - Solids (Time): 00:00 - Anes Hx Anes Hx: no prior problems - Smoking Hx Smoking Status: Former smoker - Alcohol Use Alcohol Use: Heavy ANE Labs/Vital Signs - Labs Result Diagrams: 06/14/17 03:50 06/14/17 03:50 - Vital Signs Blood Pressure: 111/66 Heart Rate: 61 Respiratory Rate: 14 O2 Sat (%): 92 Height: 182.88 cm Weight: 106.5 kg ANE Physical Exam - Airway Neck exam: FROM Mallampati Score: Class 1 Mouth exam: dentures - Pulmonary Pulmonary: no respiratory distress - Cardiovascular Cardiovascular: regular rate and rhythym - ASA Status ASA Status: IV ANE Anesthesia Plan Anesthesia Plan: general endotracheal anesthesia Lines/Monitors: central line
[2017-06-14] MEDS ORDERED: PROPOFOL/EMULSION 500 MG/50 ML BOTTLE IV ONE (08:40)
[2017-06-14] MEDS ORDERED: PAPAVERINE HCL 60 MG/2 ML SDV ONE (08:49)
[2017-06-14] MEDS ORDERED: VERAPAMIL 5 MG/2 ML VIAL ONE (08:50)
[2017-06-14] MEDS ORDERED: HYDROmorphONE/DILAUDID 2 MG/ML INJ ONE ×2 (09:06)
[2017-06-14] MEDS ORDERED: KETAMINE 100 MG/10 ML SYR ONE (09:09)
[2017-06-14] MEDS ORDERED: ESMOLOL HCL 100 MG/10 ML VIAL IV ONE (09:12)
[2017-06-14] MEDS ORDERED: fentaNYL 50 MCG PATCH TD ONE (10:00)
[2017-06-14] MEDS ORDERED: MINERAL OIL 10 ML VIAL ONE (12:14)
[2017-06-14] MEDS ORDERED: epHEDrine SULFATE 10 MG/ML SYR ONE (12:17)
[2017-06-14] MEDS ORDERED: NITROGLYCERIN 50 MG/10 ML SDV IV ONE (12:17)
[2017-06-14] MEDS ORDERED: SUGAMMADEX SODIUM 200 MG/2 ML VIAL IVP ONE (12:28)
[2017-06-14] MEDS ORDERED: PHENYLEPHRINE HCL 100 MCG/ML SYR ONE (12:36)
[2017-06-14] MEDS ORDERED: MAGNESIUM SULF 2 GM/WATER 50 ML IV ONE (12:47)
[2017-06-14] MEDS ORDERED: ONDANSETRON DISINTEGRATING 4 MG TAB PO PRN (12:47)
[2017-06-14] MEDS ORDERED: METOCLOPRAMIDE 10 MG/2 ML VIAL IVP PRN (12:47)
[2017-06-14] MEDS ORDERED: ACETAMINOPHEN 650 MG SUPP PR PRN (12:47)
[2017-06-14] MEDS ORDERED: POLYETHYLENE GLYCOL 3350 17 GM PKT PO PRN (12:47)
[2017-06-14] MEDS ORDERED: LACTULOSE 20 GM/30 ML UDCUP PO PRN (12:47)
[2017-06-14] MEDS ORDERED: PANTOPRAZOLE SODIUM 40 MG in NS 100 ML IV ONE (12:47)
[2017-06-14] MEDS ORDERED: MEPERIDINE 25 MG/ML SYR IVP PRN (12:47)
[2017-06-14] MEDS ORDERED: MAGNESIUM HYDROXIDE 30 ML UDCUP PO PRN (12:47)
[2017-06-14] MEDS ORDERED: CEPACOL LOZENGE PO PRN (12:47)
[2017-06-14] MEDS ORDERED: D50W 25 GM/50 ML SYR IVP PRN (12:47)
[2017-06-14] MEDS ORDERED: POTASSIUM Cl (KCl) 50 ML IV PRN (12:47)
[2017-06-14] MEDS ORDERED: BISACODYL 10 MG SUPP PR PRN (12:47)
[2017-06-14] MEDS ORDERED: SODIUM CL NASAL 45 ML BTL EACHNARE PRN (12:47)
[2017-06-14] MEDS ORDERED: INSULIN REGULAR HUMAN 100 UNIT in NS 100 ML IV SCH (13:00)
[2017-06-14] MEDS ORDERED: NS 1,000 ML IV SCH (13:00)
[2017-06-14] MEDS: ALBUMIN 5% 250 ML IV PRN ×2 (13:52→14:45)
[2017-06-14] MEDS: fentaNYL 100 MCG/2 ML INJ IVP PRN ×2 (13:52→20:36)
[2017-06-14] MEDS: ATORVASTATIN CALCIUM 40 MG TAB PO SCH (13:52)
[2017-06-14] MEDS: MUPIROCIN 2% 22 GM OINT NS SCH ×2 (13:52→23:26)
--- NOTE | 2017-06-14 13:58 | GOP ---
[f rep st] OPERATIVE REPORT DATE OF OPERATION: 06/14/2017 SURGEON: Edinson Cheng DO FINISH GRINDER: Caden Arechiga P.A.-C. ANESTHESIOLOGIST: Michael Benitez M.D. PREOPERATIVE DIAGNOSIS: Unstable angina pectoris with a ruptured plaque in the left main coronary ar jeovanny. POSTOPERATIVE DIAGNOSIS: Unstable angina pectoris with a ruptured plaque in the left main coronary a rtery. PROCEDURE PERFORMED: 1. Urgent coronary artery bypass grafting x2, with left internal mammary artery to the diagonal and saphenous vein graft to the lateral circumflex. 2. Ligation of left atrial appendage with AtriClip. FINDINGS: The patient presented with unstable angina pectoris. He underwent a diagnostic catheteriz ation that showed tight left main stenosis. He was consented. DESCRIPTION OF PROCEDURE: He was brought to the operating room, intubated and monitoring lines were placed. He was prepped and draped in sterile classical manner. Sternotomy was performed. The mammary was harvested. It was a 2.5 mm vessel with excellent flow. He was heparinized and cannulated. Cardiopulmonary bypass was begun. A cardioplegic arrest was obta ined with antegrade cardioplegia, topical hypothermia and systemic cooling. Initially, the left atri al appendage was ligated with an AtriClip device at the base, without difficulty. We then exposed the midportion of a very large circumflex vessel, which was grafted end-to-side with a piece of saphenous vein graft harvested from the left ankle. He was then brought off the ascending aorta without difficulty. Rewarming was begun while the mammary was grafted to a large diagonal, wh ich was much larger than the LAD which was deeply intramuscular, identified it deep into the septum. However, it had sketchy calcification on its anterior surface and I felt that the diagonal was a bet ter quality vessel, particularly in the face of left main disease and no obvious LAD stenosis. It wa s tacked to the epicardium. The cross-clamp was removed with suction on the ascending aortic vent. Spontaneous cardiac activity was noted to resume. The patient was rewarmed and weaned from bypass. Heparin was reversed with pro tamine. The cannula was removed and oversewn. Two ventricular pacing wires, 1 left pleural and 1 me diastinal drain, were placed. The thymic fat and pericardium were closed. The chest was closed in s tandard fashion. The patient was returned to the ICU in stable condition. /[id number]/MODL
[2017-06-14] MEDS ORDERED: SODIUM BICARBONATE 50 MEQ/50 ML SYR ONE (14:22)
[2017-06-14] MEDS: ceFAZolin 2 GM/DEXTROSE 100 ML IV SCH ×2 (14:45→22:25)
--- NOTE | 2017-06-14 15:07 | CPEKG ---
Heart Rate: 66 RR Interval: 909 P-R Interval: 176 QRSD Interval: 80 QT Interval: 396 QTC Interval: 415 P Everly: 42 QRS Everly: -19 T Wave Everly: 57 EKG Severity - OTHERWISE NORMAL ECG - EKG Impression: SINUS RHYTHM EKG Impression: BORDERLINE LEFT AXIS DEVIATION Electronically Signed By: Jonah He 18-Jun-2017 09:01:37
[2017-06-14] MEDS ORDERED: SODIUM BICARBONATE 50 MEQ/50 ML SYR IVP ONE (15:45)
[2017-06-14] MEDS: ONDANSETRON 4 MG/2 ML VIAL IVP PRN (17:44)
--- NOTE | 2017-06-14 17:44 | GCON ---
[f rep st] CONSULTATION PULMONARY/CRITICAL CARE CONSULTATION REFERRING PHYSICIAN: Edinson Cheng DO REASON FOR CONSULTATION: Evaluation and management of respiratory failure and hyperglycemia postoper atively. HISTORY OF PRESENT ILLNESS: The patient is a 66-year-old gentleman who was admitted to the hospital 2 days ago with increasing exertional chest pain. A cardiac catheterization revealed an ulcerated pl aque in the left main that was causing approximately 80% obstruction. He was referred by to Dr. Guille hernandez, who performed a 2-vessel CABG today. The intraoperative course was unremarkable. The patient was kept intubated postoperatively and arrived intubated in the ICU, primarily attributed to the patient 's abdominal obesity. He is waking up. He states the pain is fairly well controlled with normal ins piration, but has difficulty taking deep breaths due to sternal pain. PAST MEDICAL HISTORY: Hypertension. MEDICATIONS: At the time of admission include losartan and aspirin. ALLERGIES: None. SOCIAL HISTORY: The patient lives alone. He drinks about 4 beers a night. He has no prior history of withdrawal. He used to smoke cigars and stopped smoking a year and a half ago. He occasionally s mokes marijuana. FAMILY HISTORY: Positive for diabetes. REVIEW OF SYSTEMS: Unobtainable due to the patient's intubated state and sedation. PHYSICAL EXAMINATION: GENERAL: The patient is somnolent, but arousable on the ventilator. VITAL SI GNS: His blood pressure is 121/64 with a heart rate of 67, he is afebrile, oxygen saturations are 96 % on 100% oxygen. HEENT: Normocephalic and atraumatic. No icterus. NECK: No JVD. Trachea is mid line. CHEST: Clear to auscultation. CARDIAC: Regular rate and rhythm, without murmur. He has a m idline sternotomy scar. ABDOMEN: Soft, nontender. Bowel sounds are absent. EXTREMITIES: No clubb ing, cyanosis, or edema. NEURO: The patient opens eyes to voice and follows some simple commands. He has no focal motor weakness. LABORATORY: The chemistry group preoperatively was normal, with the exception of a blood sugar of 12 4. Blood sugar earlier that evening was 153. Hemoglobin A1c was 6.3. A troponin was 0.29. Triglyc erides 163 with an LDL of 143. A preoperative hemoglobin was normal at 15.0. IMAGING: A chest x-ray postoperatively shows postoperative changes along with some basilar atelectas is. ASSESSMENT: 1. Postoperative respiratory insufficiency. This is primarily due to anesthesia/sedation in conjunc tion with the patient's obesity. He is breathing fairly comfortable on the ventilator and may be leyla dy for a CPAP trial soon as the anesthetic wears off. 2. Hyperglycemia. This is mild, in the low-mid 100s. He has a mildly elevated hemoglobin A1c, so m ay have some glucose intolerance or mild diabetes. RECOMMENDATIONS: 1. Will reassess shortly and consider extubation. 2. The patient will be treated with an insulin drip to closely regulate his blood sugars in the imme diate postoperative state. This can be transitioned to sliding scale insulin in a day or 2, assuming his insulin needs are low. 3. The patient will be offered dietary consultation regarding his mildly elevated blood sugars. /[id number]/MODL
[2017-06-14] MEDS ORDERED: ALBUMIN 5% 500 ML IV ONE (18:30)
[2017-06-14 19:21] LABS: CALCULATED OXYGEN SATURATION 96 % (92-95)
[2017-06-14 19:21] LABS: CALCULATED OXYGEN SATURATION 91 % (92-95)
[2017-06-14] MEDS: METOPROLOL TARTRATE 50 MG TAB PO SCH (19:51)
[2017-06-14] MEDS: ASPIRIN 325 MG TAB PO SCH (19:52)
[2017-06-14] MEDS: LOSARTAN POTASSIUM 50 MG TAB PO SCH (19:52)
[2017-06-14] MEDS: SENNOSIDES/DOCUSATE SODIUM TAB PO SCH (21:11)
[2017-06-14] MEDS: HYDROCODONE/APAP 5/325 TAB PO PRN (23:53)
[2017-06-15] MEDS: fentaNYL 100 MCG/2 ML INJ IVP PRN (00:24)
[2017-06-15] MEDS: HYDROCODONE/APAP 5/325 TAB PO PRN ×2 (03:43→09:14)
[2017-06-15 05:21] LABS: % IMMATURE GRANULYOCYTES 0.5 % (0.0-1.1); ABSOLUTE IMMATURE GRANULOCYTES 0.07 10^3/uL (0.00-0.10); ADD DIFF? NO; ADD MORPH? NO; ADD SCAN? NO; ATYPICAL LYMPHOCYTE FLAG 0 (0-99); FRAGMENT RBC FLAG 0 (0-99); HEMATOCRIT 39.8 % (40.0-51.0); HEMOGLOBIN 12.6 g/dL (13.7-17.5); LEFT SHIFT FLG 0 (0-99); LIPEMIA HEMOLYSIS FLAG 80 (0-99); MEAN CELL HEMOGLOBIN CONCENTR. 31.7 g/dL (32.4-36.7); MEAN CELL VOLUME 91.5 fL (81.5-99.8); MEAN PLATELET VOLUME 9.8 fL (8.7-11.7); PLATELET CLUMPS FLAG 0 (0-99); PLATELET COUNT 127 10^3/uL (150-400); RED BLOOD CELL COUNT 4.35 10^6/uL (4.40-6.38); RED CELL DISTRIBUTION WIDTH 13.3 % (11.5-15.2)
[2017-06-15] MEDS: ceFAZolin 2 GM/DEXTROSE 100 ML IV SCH ×3 (05:21→20:06)
[2017-06-15 05:33] LABS: ANION GAP 8 mEq/L (8-16); CARBON DIOXIDE 23 mEq/l (22-31); CHLORIDE 109 mEq/L (97-110); CREATININE 1.2 mg/dL (0.7-1.3); GLOMERULAR FILTRATION RATE > 60; GLUCOSE 111 mg/dL (70-100); POTASSIUM 4.7 mEq/L (3.5-5.2); SODIUM 140 mEq/L (134-144)
[2017-06-15] MEDS: HEPARIN 5,000 UNIT/0.5 ML SYR SC SCH ×3 (05:39→20:04)
--- NOTE | 2017-06-15 06:40 | SOAPPROG ---
SOAP Progress Note Assessment/Plan: POD #1: Urgent CABGx2 (GARIBAY-diag, SVG-circ), AtriClip PANKAJ, open SVG harvest LLE Unstable angina/severe 2VD s/p CABGx2 - Remove AL/FC, CTs to bulb suction, transfer to PCU - BB/ASA/statin for secondary prevention - SCDs/heparin SQ for DVT prophylaxis Acute blood loss anemia - Stable without the the need for blood product transfusions HTN - Reintroduction of BP meds as tolerated Metabolic syndrome - Aggressive secondary prevention (better glucose control (HgbA1c 6.3), more physical activity, lowering of lipids, mgmt of HTN) Subjective: Hard to take deep breaths. Denies CP. Objective: Vital Signs Temp Pulse Resp BP Pulse Ox 36.7 C 70 19 128/67 H 92 06/15/17 06:00 06/15/17 06:00 06/15/17 06:00 06/15/17 06:00 06/15/17 06:00 Laboratory Results 06/15/17 05:00 06/15/17 05:00 06/14/17 06/15/17 06/16/17 05:59 05:59 05:59 Intake Total 550.4 2392 Output Total 1775 Balance 550.4 617 PT 13.7 SEC (12.0-15.0) 06/12/17 17:55 INR 1.06 (0.83-1.16) 06/12/17 17:55 Physical Exam - Physical Exam General Appearance: WD/WN, alert, no apparent distress, obese EENT: No scleral icterus (R), No scleral icterus (L) Neck: normal inspection Respiratory: No respiratory distress Cardiac/Chest: regular rate, rhythm Abdomen: non-tender, soft, distended Skin: normal color, warm/dry Extremities: other (LLE open EVH site C/D/I), No pedal edema Neuro/Psych: no motor/sensory deficits, alert, normal mood/affect, oriented x 3 ICD10 Worksheet Patient Problems: Problems Problem Status Onset Chest pain Acute Hypertension Acute S/P CABG x 2 Acute
[2017-06-15] MEDS ORDERED: traMADol 50 MG TAB PO PRN (07:20)
[2017-06-15 08:52] LABS: POTASSIUM 4.5 mEq/L (3.5-5.2)
[2017-06-15] MEDS ORDERED: PANTOPRAZOLE SODIUM 40 MG TAB PO SCH (09:00)
[2017-06-15] MEDS ORDERED: ASPIRIN 81 MG CHEWABLE TAB TUBE PRN (09:00)
[2017-06-15] MEDS: ASPIRIN 81 MG CHEWABLE TAB PO SCH (09:12)
[2017-06-15] MEDS: SENNOSIDES/DOCUSATE SODIUM TAB PO SCH ×2 (09:15→20:05)
[2017-06-15] MEDS: MUPIROCIN 2% 22 GM OINT NS SCH (09:15)
--- NOTE | 2017-06-15 12:00 | POSTANESTH ---
Post Anesthetic Evaluation Cardiovascular Status: Normal, Stable Respiratory Status: Normal, Stable, Requires Airway Assist Level of Consciousness/Mental Status: Can Participate in Eval Pain Control: Adequate, Prn Tx Ordered Nausea/Vomiting Control: Adequate, Prn Tx Ordered Complications Possibly Related to Anesthesia: None Noted
[2017-06-15 12:14] LABS: POTASSIUM 4.5 mEq/L (3.5-5.2)
[2017-06-15] MEDS: INSULIN LISPRO 100 UNIT/ML SC SCH ×2 (14:22→18:37)
[2017-06-15] MEDS: PANTOPRAZOLE SODIUM 40 MG TAB PO SCH (14:36)
[2017-06-15] MEDS ORDERED: NS 500 ML IV ONE (17:03)
[2017-06-16] MEDS: HYDROCODONE/APAP 5/325 TAB PO PRN ×2 (03:17→21:33)
[2017-06-16] MEDS: TEMAZEPAM 15 MG CAP PO PRN (03:18)
[2017-06-16] MEDS: HEPARIN 5,000 UNIT/0.5 ML SYR SC SCH ×3 (03:19→21:34)
[2017-06-16 03:25] LABS: % IMMATURE GRANULYOCYTES 0.7 % (0.0-1.1); ABSOLUTE IMMATURE GRANULOCYTES 0.11 10^3/uL (0.00-0.10); ADD DIFF? NO; ADD MORPH? NO; ADD SCAN? NO; ATYPICAL LYMPHOCYTE FLAG 0 (0-99); FRAGMENT RBC FLAG 0 (0-99); HEMATOCRIT 39.3 % (40.0-51.0); HEMOGLOBIN 12.7 g/dL (13.7-17.5); LEFT SHIFT FLG 0 (0-99); LIPEMIA HEMOLYSIS FLAG 80 (0-99); MEAN CELL HEMOGLOBIN 29.8 pg (27.9-34.1); MEAN CELL HEMOGLOBIN CONCENTR. 32.3 g/dL (32.4-36.7); MEAN CELL VOLUME 92.3 fL (81.5-99.8); MEAN PLATELET VOLUME 9.8 fL (8.7-11.7); PLATELET CLUMPS FLAG 10 (0-99); PLATELET COUNT 133 10^3/uL (150-400); RED BLOOD CELL COUNT 4.26 10^6/uL (4.40-6.38); RED CELL DISTRIBUTION WIDTH 13.5 % (11.5-15.2)
[2017-06-16 03:50] LABS: ANION GAP 10 mEq/L (8-16); CALCIUM 8.9 mg/dL (8.5-10.4); CARBON DIOXIDE 25 mEq/l (22-31); CHLORIDE 103 mEq/L (97-110); CREATININE 1.6 mg/dL (0.7-1.3); GLOMERULAR FILTRATION RATE 43; GLUCOSE 149 mg/dL (70-100); POTASSIUM 4.7 mEq/L (3.5-5.2); SODIUM 138 mEq/L (134-144)
--- NOTE | 2017-06-16 07:33 | SOAPPROG ---
SOAP Progress Note Assessment/Plan: POD #2: Urgent CABGx2 (GARIBAY-diag, SVG-circ), AtriClip PANKAJ, open SVG harvest LLE Unstable angina/severe 2VD s/p CABGx2 - BB/ASA/statin for secondary prevention when appropriate - CTs and PW to be removed this AM - SCDs/heparin SQ for DVT prophylaxis Acute blood loss anemia - Stable without the the need for blood product transfusions HTN - Reintroduction of BP meds as tolerated Metabolic syndrome - Aggressive secondary prevention (better glucose control (HgbA1c 6.3), more physical activity, lowering of lipids, mgmt of HTN) EMILIA with hypotension - Likely secondary to dehydration - Will hydrate and recheck BMP in AM Subjective: Didn't sleep last night and very tired as a result. Some minor nausea. No vomiting. Objective: Vital Signs Temp Pulse Resp BP Pulse Ox 36.9 C 98 18 125/69 H 94 06/16/17 04:53 06/16/17 04:53 06/16/17 04:53 06/16/17 04:53 06/16/17 04:53 Laboratory Results 06/16/17 03:15 06/16/17 03:15 06/15/17 06/16/17 06/17/17 05:59 05:59 05:59 Intake Total 2392 1452 Output Total 1775 1190 Balance 617 262 PT 13.7 SEC (12.0-15.0) 06/12/17 17:55 INR 1.06 (0.83-1.16) 06/12/17 17:55 Physical Exam - Physical Exam General Appearance: WD/WN, alert, no apparent distress, obese EENT: No scleral icterus (R), No scleral icterus (L) Neck: normal inspection Respiratory: No respiratory distress Cardiac/Chest: regular rate, rhythm Abdomen: non-tender, soft, distended Skin: normal color, warm/dry Extremities: pedal edema Neuro/Psych: no motor/sensory deficits, alert, normal mood/affect, oriented x 3 ICD10 Worksheet Patient Problems: Problems Problem Status Onset Chest pain Acute Hypertension Acute S/P CABG x 2 Acute
[2017-06-16] MEDS: ONDANSETRON 4 MG/2 ML VIAL IVP PRN (08:25)
[2017-06-16] MEDS ORDERED: NS 1,000 ML IV SCH (09:00)
[2017-06-16] MEDS: SENNOSIDES/DOCUSATE SODIUM TAB PO SCH ×2 (09:20→21:33)
[2017-06-16] MEDS: ASPIRIN 81 MG CHEWABLE TAB PO SCH (09:20)
[2017-06-16] MEDS: INSULIN LISPRO 100 UNIT/ML SC SCH ×3 (09:52→17:36)
[2017-06-16] MEDS: PANTOPRAZOLE SODIUM 40 MG TAB PO SCH (12:28)
[2017-06-16] MEDS: IPRATROPIUM/ALBUTEROL 3 ML DEYVIAL IH PRN (14:53)
--- NOTE | 2017-06-16 16:20 | ASMTCMCOM ---
CM Note CM Note Notes: CM met w/ pt for dispo planning. OT is recommending SNF. PT is recommending SNF vs HC pending family support. 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 Pt is agreeable to going to a SNF. CM called pts and she wanted to have a conversation w/ pt about where to submit referrals to. Pt was asleep when wanted to have the conversation about dispo plan. CM provided w/ a list of options in the [facility] and [place] area for SNFs. CM to follow. Date Signed: 06/16/2017 04:20 PM Electronically Signed By:ROYAL Wynn
[2017-06-16] MEDS: ZOLPIDEM TARTRATE 5 MG TAB PO PRN ×2 (21:34→23:20)
[2017-06-17] MEDS: HYDROCODONE/APAP 5/325 TAB PO PRN (03:48)
[2017-06-17] MEDS: IPRATROPIUM/ALBUTEROL 3 ML DEYVIAL IH PRN ×3 (04:09→22:45)
[2017-06-17 04:21] LABS: ANION GAP 7 mEq/L (8-16); CARBON DIOXIDE 26 mEq/l (22-31); CHLORIDE 103 mEq/L (97-110); CREATININE 1.3 mg/dL (0.7-1.3); GLOMERULAR FILTRATION RATE 55; GLUCOSE 129 mg/dL (70-100); POTASSIUM 4.6 mEq/L (3.5-5.2); SODIUM 136 mEq/L (134-144)
[2017-06-17] MEDS: HEPARIN 5,000 UNIT/0.5 ML SYR SC SCH ×3 (06:42→22:01)
[2017-06-17] MEDS ORDERED: FUROSEMIDE 40 MG/4 ML VIAL IVP ONE ×2 (06:53→15:00)
[2017-06-17] MEDS: INSULIN LISPRO 100 UNIT/ML SC SCH (07:25)
--- NOTE | 2017-06-17 08:07 | SOAPPROG ---
SOAP Progress Note Assessment/Plan: POD #3: Urgent CABGx2 (GARIBAY-diag, SVG-circ), AtriClip PANKAJ, open SVG harvest LLE Unstable angina/severe 2VD s/p CABGx2 - BB/ASA/statin for secondary prevention when appropriate - SCDs/heparin SQ for DVT prophylaxis Acute blood loss anemia - Stable without the the need for blood product transfusions HTN - Reintroduction of BP meds as tolerated Metabolic syndrome - Aggressive secondary prevention (better glucose control (HgbA1c 6.3), more physical activity, lowering of lipids, mgmt of HTN) EMILIA with hypotension - Recovered, fluids stopped Subjective: Having exertional dyspnea. Denies pain. Slept better last night. Objective: Vital Signs Temp Pulse Resp BP Pulse Ox 36.8 C 88 22 H 172/103 H 92 06/17/17 07:50 06/17/17 07:50 06/17/17 07:50 06/17/17 07:50 06/17/17 07:50 Laboratory Results 06/16/17 03:15 06/17/17 04:00 06/16/17 06/17/17 06/18/17 05:59 05:59 05:59 Intake Total 1452 1755 Output Total 1190 648 Balance 262 1107 PT 13.7 SEC (12.0-15.0) 06/12/17 17:55 INR 1.06 (0.83-1.16) 06/12/17 17:55 Physical Exam - Physical Exam General Appearance: WD/WN, alert, no apparent distress EENT: No scleral icterus (R), No scleral icterus (L) Neck: normal inspection Respiratory: crackles, rhonchi, No wheezing Cardiac/Chest: regular rate, rhythm Abdomen: non-tender, soft, distended Skin: normal color, warm/dry Extremities: pedal edema Neuro/Psych: no motor/sensory deficits, alert, normal mood/affect, oriented x 3 ICD10 Worksheet Patient Problems: Problems Problem Status Onset Chest pain Acute Hypertension Acute S/P CABG x 2 Acute
[2017-06-17] MEDS ORDERED: POTASSIUM CL 20 MEQ TAB PO ONE ×2 (09:24→17:54)
[2017-06-17] MEDS: ASPIRIN 81 MG CHEWABLE TAB PO SCH (09:54)
[2017-06-17] MEDS: SENNOSIDES/DOCUSATE SODIUM TAB PO SCH ×2 (09:54→21:12)
[2017-06-17] MEDS: ATORVASTATIN CALCIUM 40 MG TAB PO SCH (09:54)
[2017-06-17] MEDS: METOPROLOL TARTRATE 25 MG TAB PO SCH ×2 (09:56→21:12)
[2017-06-17] MEDS: PANTOPRAZOLE SODIUM 40 MG TAB PO SCH (13:46)
[2017-06-17 17:50] LABS: POTASSIUM 3.9 mEq/L (3.5-5.2)
[2017-06-17] MEDS: TEMAZEPAM 15 MG CAP PO PRN (21:12)
[2017-06-18 04:17] LABS: ANION GAP 7 mEq/L (8-16); CALCIUM 9.2 mg/dL (8.5-10.4); CARBON DIOXIDE 28 mEq/l (22-31); CHLORIDE 103 mEq/L (97-110); CREATININE 1.1 mg/dL (0.7-1.3); GLOMERULAR FILTRATION RATE > 60; GLUCOSE 132 mg/dL (70-100); POTASSIUM 4.8 mEq/L (3.5-5.2); SODIUM 138 mEq/L (134-144)
[2017-06-18] MEDS: IPRATROPIUM/ALBUTEROL 3 ML DEYVIAL IH PRN (06:07)
[2017-06-18] MEDS: HEPARIN 5,000 UNIT/0.5 ML SYR SC SCH ×3 (06:53→20:07)
--- NOTE | 2017-06-18 07:45 | SOAPPROG ---
SOAP Progress Note Assessment/Plan: POD #4: Urgent CABGx2 (GARIBAY-diag, SVG-circ), AtriClip PANKAJ, open SVG harvest LLE Unstable angina/severe 2VD s/p CABGx2 - BB/ASA/statin for secondary prevention - SCDs/heparin SQ for DVT prophylaxis Acute blood loss anemia - Stable without the the need for blood product transfusions HTN - Reintroduction of BP meds as tolerated Metabolic syndrome - Aggressive secondary prevention (tighter glucose control (HgbA1c 6.3), more physical activity, lowering of lipids, mgmt of HTN) EMILIA with hypotension - Recovered, fluids stopped Disposition - Plan for home in [place] with ex- on Monday Subjective: Feeling well today. Denies SOB. Pain well-controlled. No N/V. Multiple BMs Objective: Vital Signs Temp Pulse Resp BP Pulse Ox 36.6 C 80 21 H 143/91 H 92 06/18/17 03:49 06/18/17 03:49 06/18/17 03:49 06/18/17 03:49 06/18/17 03:49 Laboratory Results 06/16/17 03:15 06/18/17 03:15 06/17/17 06/18/17 06/19/17 05:59 05:59 05:59 Intake Total 1755 500 Output Total 648 2550 Balance 1107 -2050 PT 13.7 SEC (12.0-15.0) 06/12/17 17:55 INR 1.06 (0.83-1.16) 06/12/17 17:55 Physical Exam - Physical Exam General Appearance: WD/WN, alert, no apparent distress EENT: No scleral icterus (R), No scleral icterus (L) Neck: normal inspection Respiratory: No respiratory distress Cardiac/Chest: regular rate, rhythm Abdomen: non-tender, soft, distended Skin: normal color, warm/dry Extremities: pedal edema Neuro/Psych: no motor/sensory deficits, alert, normal mood/affect, oriented x 3 ICD10 Worksheet Patient Problems: Problems Problem Status Onset Chest pain Acute Hypertension Acute S/P CABG x 2 Acute
[2017-06-18] MEDS: METOPROLOL TARTRATE 25 MG TAB PO SCH ×2 (07:51→20:05)
[2017-06-18] MEDS: ASPIRIN 81 MG CHEWABLE TAB PO SCH (07:51)
[2017-06-18] MEDS: ATORVASTATIN CALCIUM 40 MG TAB PO SCH (07:51)
[2017-06-18] MEDS ORDERED: FUROSEMIDE 40 MG/4 ML VIAL IVP ONE ×2 (08:41→20:38)
[2017-06-18] MEDS ORDERED: POTASSIUM CL 20 MEQ TAB PO ONE ×2 (08:41→20:39)
[2017-06-18] MEDS: SENNOSIDES/DOCUSATE SODIUM TAB PO SCH (10:24)
[2017-06-18] MEDS: PANTOPRAZOLE SODIUM 40 MG TAB PO SCH (16:45)
[2017-06-18 23:09] LABS: COLOR PALE YELLOW; LEUKOCYTE ESTERASE,URINE NEGATIVE (NEGATIVE); NITRITE,URINE NEGATIVE (NEGATIVE)
[2017-06-18 23:11] LABS: MUCUS TRACE /lpf (NONE-1+); RBC,URINE 50-182 /hpf (0-3)
[2017-06-19 06:01] LABS: HEMATOCRIT 37.8 % (40.0-51.0); HEMOGLOBIN 12.5 g/dL (13.7-17.5); MEAN CELL HEMOGLOBIN 29.7 pg (27.9-34.1); MEAN CELL HEMOGLOBIN CONCENTR. 33.1 g/dL (32.4-36.7); MEAN CELL VOLUME 89.8 fL (81.5-99.8); RED BLOOD CELL COUNT 4.21 10^6/uL (4.40-6.38); RED CELL DISTRIBUTION WIDTH 13.1 % (11.5-15.2)
[2017-06-19 06:31] LABS: ANION GAP 9 mEq/L (8-16); CALCIUM 9.4 mg/dL (8.5-10.4); CARBON DIOXIDE 32 mEq/l (22-31); CHLORIDE 99 mEq/L (97-110); CREATININE 1.1 mg/dL (0.7-1.3); GLOMERULAR FILTRATION RATE > 60; GLUCOSE 119 mg/dL (70-100); POTASSIUM 4.3 mEq/L (3.5-5.2); SODIUM 140 mEq/L (134-144)
--- NOTE | 2017-06-19 07:35 | SOAPPROG ---
SOAP Progress Note Assessment/Plan: Assessment: POD #5 Urgent CABGx2 (GARIBAY-D1, SVG-circ), prophylactic AtriClip ligation PANKAJ, open SVG harvest left ankle 1. Sx severe CAD with preserved LV systolic fx s/p CABG x 2. Hemodynamically stable early postop course. Tubes and wires out. Secondary prevention with ASA, BB, and statin. 2. Acute blood loss anemia - Stable. No blood products transfused. H/H > 11/38 maintained. 3. Metabolic syndrome By preop A1c of 6.3%, TG 163, BMI > 30, and hypertensive urgency (BPs > 160/120). Postop management with SSI, BB and ARB. Counseling regarding therapeutic lifestyle changes provided. Prompt enrollment in phase II cardiac rehab encouraged. 4. EMILIA - Bump in Cr to peak of 1.6 on POD#2. Assoc with oliguria and relatively low blood pressures. Prompt normalization with IV fluid support. 5. Postop hematuria - Etiology unclear. Appears to be clearing off VTE prophylaxis. UA neg. Cx pending. Plan: Increase metoprolol to 25 mg BID. Cont 40 mg IV lasix x 1 more dose. Resume ASA. Cont hold SQ hep. Ck post void residuals x 2. Add sleeper. Dispo - Anticipate home this afternoon or tomorrow. 06/19/17 07:32 Subjective: Miserable time sleeping, otherwise feels ok. Improving stamina and mobility. Copious voiding post lasix and no further hematuria after "that one time". Minimal incisional discomfort. Only one level to contend with at home and would just as soon go home. Objective: Vital Signs Temp Pulse Resp BP Pulse Ox 36.8 C 86 16 146/84 H 95 06/19/17 04:28 06/19/17 04:28 06/19/17 04:28 06/19/17 04:28 06/19/17 04:28 Laboratory Results 06/19/17 05:55 06/19/17 05:55 06/18/17 06/19/17 06/20/17 05:59 05:59 05:59 Intake Total 500 836 Output Total 2550 850 Balance -2049 PT 13.7 SEC (12.0-15.0) 06/12/17 17:55 INR 1.06 (0.83-1.16) 06/12/17 17:55 HR stable in the 80s. Occ PVC. Upward creeping SBP. O2 req improved post aggressive diuresis. Wt down 6 kg/48 hr and now within 1 kg of admit wt. Afeb. WBC nl. UA neg. Cx pending. Hct stable. Physical Exam - Physical Exam General Appearance: alert, no apparent distress Respiratory: decreased breath sounds (bases) Cardiac/Chest: regular rate, rhythm, other (Sternum grossly stable. Sternotomy, CT sites, and left ankle venotomy CDI.) Abdomen: non-tender, soft Skin: warm/dry Extremities: swelling (1+ dependent donor leg, trace RLE) ICD10 Worksheet Patient Problems: Problems Problem Status Onset Chest pain Acute Hypertension Acute S/P CABG x 2 Acute
[2017-06-19 07:41] VITALS: RESP 18
[2017-06-19] MEDS: ATORVASTATIN CALCIUM 40 MG TAB PO SCH (08:16)
[2017-06-19] MEDS: ASPIRIN 81 MG CHEWABLE TAB PO SCH (08:40)
[2017-06-19] MEDS ORDERED: METOPROLOL TARTRATE 25 MG TAB PO SCH (09:00)
--- NOTE | 2017-06-19 11:45 | ASMTCMCOM ---
CM Note CM Note Notes: 06/19/2017 Case Management Note Met w/pt to discuss d/c poc. Pt reports that Merna ([phone]) plans to stay with him during the week. When she is not able to stay with him his children are going to alternate so he is not left alone. Son Dia [phone] Daughter Cuca [phone] Pt plans to attend cardiac outpatient rehab in [place]. Children to transport to and from rehab. Case Management d/c poc: Home with family support when medically stable with follow up as directed. Case Management available if needs change. Date Signed: 06/19/2017 11:45 AM Electronically Signed By:Sosa Velazquez RN
--- NOTE | 2017-06-19 13:48 | PDHOMEO2F ---
Home Oxygen Face to Face Home Orders: I certify that a physician or a nurse practitioner or physician's nurse practitioner physicians assistant has had a [id number] encounter with this patient on the date of this order due to the diagnosis listed, which relates to the primary reason the patient requires home oxygen. Alternative treatments have been tried, or considered, and deemed ineffective. It is anticipated that supplemental oxygen will result in improvement with treatment. Home oxygen qualifying diagnosis: CAD Home oxygen secondary diagnosis: bilateral pleural effusions SpO2 on room air (%): 86 Frequency of home oxygen needed: continuous Home oxygen liters per minute: 2 Home oxygen delivery device: nasal cannula Concentrator: Yes E-tanks for mobility and back up: Yes If ordering portable O2, is the patient mobile in the home?: Yes I certify that, based on these findings, the home oxygen is medically necessary for this patient for the following length of time. Length of time home oxygen needed: 1 month
--- NOTE | 2017-06-19 14:07 | PDDCSUM ---
Discharge Summary Discharge Summary: DATE OF ADMISSION: 06/11/17 DATE OF DISCHARGE: 06/19/17 DISPOSITION: Home, self-care PRINCIPAL ADMISSION DIAGNOSIS: Unstable angina PRINCIPAL DISCHARGE DIAGNOSES: 1. Metabolic syndrome 2. Mild carotid atherosclerosis 3. Status post urgent coronary artery bypass grafting x 2 4. Status post prophylactic AtriClip ligation of the left atrial appendage 5. Acute expected blood loss anemia 6. Acute kidney injury 7. Acute postoperative hematuria on VTE prophylaxis HISTORY OF PRESENT ILLNESS: 66 yo male with a 2 month history of intermittent chest pains admitted for further evaluation of worsening exertional chest pressure associated with elevated blood pressure. Found to have an ulcerated LM stenosis with normal LV systolic fx and an LVEDP of 12. Medically stabilized and referred for urgent surgical revascularization. Preop risk stratification notable for a HgbA1c of 6.3%, dyslipidemia, and minimal carotid atherosclerosis. PERTINENT PAST MEDICAL HISTORY: HTN, obesity (BMI 30-35), nocturia, anxiety MEDICATIONS ON ADMISSION: Aspirin 325 mg daily, Losartan 50 mg 2 tabs daily, Ibuprofen 200 mg daily prn ALLERGIES/SENSITIVITIES: NKDA CONSULTANTS: Cardiology (Maximino), CV surgery (Skylar), Pulmonology/critical care (Emil) PROCEDURES/IMAGIN/9 (Maximino): Left heart catheterization with selective coronary angiography , left ventriculography and intravascular ultrasound of the left main. Access via right radial artery. 06/13 Carotid Ultrasound 06/14 (Skylar): Urgent coronary artery bypass grafting x 2 (GARIBAY-LAD, SV-LCX). Takedown left internal mammary artery. Open vein harvest left ankle. Prophylactic AtriClip ligation of the left atrial appendage. ABBREVIATED HOSPITAL COURSE BY ACTIVE PROBLEM LIST: 1. Sx severe CAD with preserved LV systolic fx - s/p CABG x 2. Hemodynamically stable early postop course without tachyarrhythmias. Secondary prevention with ASA, BB, statin. 2. Acute expected blood loss anemia - Stable. No blood products transfused. H/H > 11/38 maintained. 3. Metabolic syndrome - By preop A1c of 6.3%, TG 163, BMI > 30, and hypertensive urgency (BPs > 160/120). Preop management with statin, BB, and ARB. Postop management with SSI and BB alone. No correctional needs after POD#2 on carb control diet. ARB deferred d/t EMILIA and relaxed BP parameters. Counseling regarding therapeutic lifestyle changes provided. Prompt enrollment in phase II cardiac rehab encouraged. 4. EMILIA - Bump in Cr to peak of 1.6 on POD#2. Assoc with oliguria and relatively low blood pressures. Prompt normalization with IVF support. 5. Postop hematuria - Single episode. No irritative or retentive sx. Precautionary UA neg. Spontaneous clearing off VTE prophylaxis. DISCHARGE CLINICAL INFORMATION: Sternum grossly stable. Sternotomy and left ankle venotomy CDI, sutured, + Dermabond. HR 70s. SBP 110s. SpO2 86% RA, > 91% on 2 Lpm O2. Wt 1.1 kg above admission at 104.3 kilos. Hgb 12.7, HCT 39.3 Plt 133, Na 138, K , Cr 1.1 Admission lipid profile: TC 215, TG 163, HDL 40, LDL 143 DISCHARGE MEDICATIONS: As on admission with the following adjustments: Hold Losartan. Hold Ibuprofen. NEW prescriptions: 1. Lipitor 80 mg daily. 2. Lasix 40 mg daily until back to baseline weight and no swelling. 3. KlorCon 20 meq daily with lasix. 4. Metoprolol tartrate 25 mg BID. 5. Temazepam 15 mg HS prn insomnia not relieved by melatonin or tylenol PM. 6. Tramadol 50 mg q 6-8h prn incisional discomfort. 7. Oxygen @ 2 Lpm continuously, or as directed by SpO2. FOLLOW UP APPOINTMENTS: 1. CV surgery: with Dr Cheng at [facility] on 06/27 at 11am. 2. Cardiology: with Dr Suárez at [facility] within 4-6 weeks. Appointment to be established during surgical visit. FOLLOW UP TESTING: CXR prior to surgical appointment.
[2017-06-19] MEDS ORDERED: FUROSEMIDE 40 MG/4 ML VIAL IVP ONE (15:00)
[2017-06-19] MEDS ORDERED: POTASSIUM CL 20 MEQ TAB PO ONE (15:00)
[2017-06-19 16:42] VITALS: BP 144/71; PULSE 79; TEMP 98.5; O2SAT 92
[2017-06-19] MEDS: PANTOPRAZOLE SODIUM 40 MG TAB PO SCH (16:46)
== END 2017-06-19 16:45 | disposition home or self-care (01) | DRG 234 ==
LOC: F3E 23:59 → F2W 06-12 14:47 → OBSVTOIN 06-13 14:18 → F2N 06-14 08:23 → F2W 06-15 12:05
PROVIDERS: ADMIT Family Medicine; ATTEND Thoracic Surgery (Cardiothoracic Vascular Surgery)
PROC: 4A023N7 Measurement of Cardiac Sampling and Pressure, Left Heart, Percutaneous Approach (ICD-10-PCS; 2017-06-13)
PROC: B245YZZ Ultrasonography of Left Heart using Other Contrast (ICD-10-PCS; 2017-06-13)
PROC: B2151ZZ Fluoroscopy of Left Heart using Low Osmolar Contrast (ICD-10-PCS; 2017-06-13)
PROC: 5A09357 Assistance with Respiratory Ventilation, Less than 24 Consecutive Hours, Continuous Positive Airway Pressure (ICD-10-PCS; 2017-06-13)
PROC: B2111ZZ Fluoroscopy of Multiple Coronary Arteries using Low Osmolar Contrast (ICD-10-PCS; 2017-06-13)
PROC: 5A1221Z Performance of Cardiac Output, Continuous (ICD-10-PCS; principal; 2017-06-14 08:30)
PROC: 06BQ0ZZ Excision of Left Saphenous Vein, Open Approach (ICD-10-PCS; principal; 2017-06-14 08:30)
PROC: 02L70ZK Occlusion of Left Atrial Appendage, Open Approach (ICD-10-PCS; principal; 2017-06-14 08:30)
PROC: 02100Z9 Bypass Coronary Artery, One Artery from Left Internal Mammary, Open Approach (ICD-10-PCS; principal; 2017-06-14 08:30)
PROC: 021009W Bypass Coronary Artery, One Artery from Aorta with Autologous Venous Tissue, Open Approach (ICD-10-PCS; principal; 2017-06-14 08:30)
DX: I25.110 Atherosclerotic heart disease of native coronary artery with unstable angina pectoris (principal); E88.81 Metabolic syndrome and other insulin resistance; I25.84 Coronary atherosclerosis due to calcified coronary lesion; N17.9 Acute kidney failure, unspecified; J95.88 Other intraoperative complications of respiratory system, not elsewhere classified; R06.09 Other forms of dyspnea; I16.0 Hypertensive urgency; I70.8 Atherosclerosis of other arteries; D62 Acute posthemorrhagic anemia; E11.65 Type 2 diabetes mellitus with hyperglycemia; E66.9 Obesity, unspecified; Z68.31 Body mass index [BMI] 31.0-31.9, adult; F41.9 Anxiety disorder, unspecified; F10.10 Alcohol abuse, uncomplicated; E78.5 Hyperlipidemia, unspecified; Z87.891 Personal history of nicotine dependence
CPT/HCPCS: 82947-QW; 85520-90; 97116-GP; 97161-GP; 97165-GO; 97530-GP; 97535-GO; C1753; C1769; C1887; G0378; G8978-GP-CJ; G8979-GP-CI; G8987-GO-CK; G8988-GO-CI; J0153; J0282; J0360; J0461; J0690; J1170; J1200; J1265; J1644; J1650; J1815; J1940; J2001; J2250; J2260; J2370; J2405; J2440; J2704; J2720; J2765; J2930; J3010; J7060; P9041; Q9967

== ENCOUNTER → 2017-06-27 | Outpatient (CLI) | payer OTHER | LOC: FIMAGING 10:19 | PROVIDERS: ATTEND Thoracic Surgery (Cardiothoracic Vascular Surgery) | DX: J90 Pleural effusion, not elsewhere classified (principal); Z95.1 Presence of aortocoronary bypass graft ==

== ENCOUNTER → 2017-06-28 | Outpatient (CLI) | payer OTHER ==
[~2017-06-28] MED LIST: LIDOCAINE 1% 300 MG/30 ML SDV ONE
== END ==
LOC: FIMAGING 11:20
PROVIDERS: ATTEND Thoracic Surgery (Cardiothoracic Vascular Surgery)
DX: J98.11 Atelectasis (principal)

== ENCOUNTER → 2017-06-30 | Outpatient (CLI) | payer OTHER | LOC: FIMAGING 11:05 → FLAB 11:05 → EDSTATUS 11:11 | PROVIDERS: ATTEND Thoracic Surgery (Cardiothoracic Vascular Surgery) | DX: Z95.1 Presence of aortocoronary bypass graft (principal) ==

== ENCOUNTER → 2017-07-03 | Outpatient (CLI) | payer OTHER | LOC: FIMAGING 07:55 | PROVIDERS: ATTEND Thoracic Surgery (Cardiothoracic Vascular Surgery) | DX: J90 Pleural effusion, not elsewhere classified (principal); Z95.1 Presence of aortocoronary bypass graft ==

== ENCOUNTER 2017-07-07 14:26 | Inpatient (IN) | payer OTHER ==
--- NOTE | 2017-07-07 14:46 | CPEKG ---
Heart Rate: 82 RR Interval: 732 P-R Interval: 172 QRSD Interval: 82 QT Interval: 356 QTC Interval: 416 P [place]: 40 QRS [place]: -20 T Wave [place]: 79 EKG Severity - ABNORMAL ECG - EKG Impression: SINUS RHYTHM EKG Impression: BORDERLINE LEFT AXIS DEVIATION EKG Impression: ST ELEVATION SUGGESTS PERICARDITIS Electronically Signed By: Caden Wilkins 07-Jul-2017 18:25:17
--- NOTE | 2017-07-07 14:46 | CPEKG ---
Heart Rate: 82 RR Interval: 732 P-R Interval: 172 QRSD Interval: 82 QT Interval: 356 QTC Interval: 416 P [place]: 40 QRS [place]: -20 T Wave [place]: 79 EKG Severity - ABNORMAL ECG - EKG Impression: SINUS RHYTHM EKG Impression: BORDERLINE LEFT AXIS DEVIATION EKG Impression: ST ELEVATION SUGGESTS PERICARDITIS Electronically Signed By: Caden Wilkins 07-Jul-2017 18:25:17
[2017-07-07] MEDS ORDERED: IOPAMIDOL (ISOVUE 370) 100 ML BTL IV ONE ×2 (14:53)
--- NOTE | 2017-07-07 15:01 | CPEKG ---
Heart Rate: 81 RR Interval: 741 P-R Interval: 168 QRSD Interval: 80 QT Interval: 364 QTC Interval: 423 P [place]: 27 QRS [place]: -22 T Wave [place]: 79 EKG Severity - ABNORMAL ECG - EKG Impression: SINUS RHYTHM EKG Impression: PROBABLE LEFT ATRIAL ABNORMALITY EKG Impression: BORDERLINE LEFT AXIS DEVIATION EKG Impression: BORDERLINE T ABNORMALITIES, ANT-LAT LEADS EKG Impression: ST ELEVATION SUGGESTS PERICARDITIS Electronically Signed By: Caden Wilkins 07-Jul-2017 18:25:17
--- NOTE | 2017-07-07 15:01 | CPEKG ---
Heart Rate: 81 RR Interval: 741 P-R Interval: 168 QRSD Interval: 80 QT Interval: 364 QTC Interval: 423 P [place]: 27 QRS [place]: -22 T Wave [place]: 79 EKG Severity - ABNORMAL ECG - EKG Impression: SINUS RHYTHM EKG Impression: PROBABLE LEFT ATRIAL ABNORMALITY EKG Impression: BORDERLINE LEFT AXIS DEVIATION EKG Impression: BORDERLINE T ABNORMALITIES, ANT-LAT LEADS EKG Impression: ST ELEVATION SUGGESTS PERICARDITIS Electronically Signed By: Caden Wilkins 07-Jul-2017 18:25:17
--- NOTE | 2017-07-07 15:20 | EDPHY ---
H & P Stated Complaint: L CP WORSE WITH DEEP BREATH/OPEN HEART SURG 06/17 Time Seen by Provider: 07/07/17 14:40 HPI/ROS: CHIEF COMPLAINT: Pleuritic chest pain HISTORY OF PRESENT ILLNESS: The patient presents to the ED with a 1 day history of left-sided pleuritic chest pain. The patient is approximately 2 weeks status post CABG. He has been recovering from this uneventfully at home. He is not anticoagulated. He has no history of PE or DVT. The patient was recently evaluated for an elevated right hemidiaphragm with a noncontrast CT scan of the chest which demonstrated no evidence of a pleural effusion. The patient did have expected postoperative edema in his lower legs which has been improving. The patient states initially his chest pain was 8/10. It is currently 2/10. REVIEW OF SYSTEMS: A comprehensive 10 point review of systems is otherwise negative aside from elements mentioned in the history of present illness. Source: Patient Exam Limitations: No limitations - Personal History Current Tetanus/Diphtheria Vaccine: Unsure - Medical/Surgical History Hx Asthma: No Hx Chronic Respiratory Disease: No Hx Diabetes: No Hx Cardiac Disease: Yes Hx Renal Disease: No Hx Cirrhosis: No Hx Alcoholism: No Hx HIV/AIDS: No Hx Splenectomy or Spleen Trauma: No Other PMH: STRESS TEST 10/21 OPEN HEART SURG. HTN, - Social History Smoking Status: Former smoker - Physical Exam Exam: General Appearance: Alert, no acute distress, slightly obese Eyes: Pupils equal and round no pallor or injection ENT, Mouth: Mucous membranes moist Respiratory: There are no retractions, lungs are clear to auscultation, sternotomy incision clean dry and intact Cardiovascular: Regular rate and rhythm Gastrointestinal: Abdomen is soft and nontender, no masses, bowel sounds normal Neurological: A&O, normal motor function, normal sensory exam, normal cranial nerves Skin: Warm and dry, no rashes Musculoskeletal: Neck is supple nontender Extremities: 1+ bilateral edema, surgical incision clean dry and intact Psychiatric: Patient is oriented X 3, there is no agitation Constitutional: Initial Vital Signs Temperature (C) 37 C 07/07/17 14:29 Heart Rate 82 07/07/17 14:29 Respiratory Rate 19 07/07/17 14:29 Blood Pressure 166/79 H 07/07/17 14:29 O2 Sat (%) 90 L 07/07/17 14:29 O2 Delivery Mode Nasal Cannula O2 (L/minute) 4 Allergies/Adverse Reactions: No Known Allergies Allergy (Verified 07/07/17 14:29) Home Medications: Medication Instructions Recorded Aspirin [Aspirin 325 mg (*)] 325 mg PO DAILY 06/12/17 Acetaminophen [Tylenol 325mg (*)] 650 mg PO Q4HRS PRN tab 06/19/17 Furosemide [Lasix 40 MG (*)] 40 mg PO DAILY #15 tab 06/19/17 Metoprolol Tartrate [Lopressor 25 25 mg PO BID #60 tab 06/19/17 mg (*)] Potassium Cl [Klor-Con 20 meq (*)] 20 meq PO DAILY #15 tab 06/19/17 Atorvastatin Calcium [Lipitor 80 80 mg PO DAILY 07/07/17 mg] Medical Decision Making - Diagnostics EKG Interpretation: EKG: Complete interpretation has been separately recorded in the [facility] archive. Summary impression: Sinus rhythm, nonspecific ST T wave changes noted Imaging Results: Imaging Impressions Chest X-Ray 07/07/17 15:37 Impression: 1. No acute change. 2. No recurrent pleural effusion. 3. Cardiomegaly, asymmetric elevation right hemidiaphragm, and right basilar atelectasis unchanged. Procedures: Procedure: Limited transthoracic echocardiogram. A limited transthoracic echocardiogram was performed and interpreted by myself for cardiac arrest. Limited transthoracic echocardiogram: The pericardium was visualized and found to be negative for pericardial fluid. Cardiac activity was present. The study was negative for pericardial effusion. The study demonstrated presence of cardiac activity. ED Course/Re-evaluation: The patient presents to the ED for evaluation of 1 day of left pleuritic chest pain. The patient is hemodynamically stable upon arrival. The patient had an IV established. He was placed on a special educator. Approximately 3 minutes after the patient's IV was started the patient complained of acute vision loss. He was then noted to have an asystolic arrest. CPR was initiated. The patient had approximately 30 cycles of CPR with return of spontaneous circulation. The patient was moved immediately into the resuscitation room. I performed a stat cardiac echocardiogram which demonstrated no obvious pericardial effusion. Consultation was made with Dr. Kerr the patient's cardiothoracic surgeon and Dr. Ivan Stanton from Cardiology. The patient was seen by cardiothoracic surgery and Cardiology in the emergency department. He was taken for a CT coronary angiogram and CT pulmonary embolism study. Consultation was made with Dr. Garcia from the hospitalist service. The patient will be admitted to the intensive care unit for close observation this evening. Critical Care Time: Critical care time exclusive of procedures and exclusive of the PA's time was 35 minutes, performed by myself, Caden Wilkins MD. - Data Points Laboratory Results: Laboratory Results 07/07/17 14:58 07/07/17 14:58 07/07/17 07/07/17 07/07/17 14:58 14:58 14:58 WBC 11.12 10^3/uL H 10^3/uL (3.80-9.50) RBC 4.62 10^6/uL 10^6/uL (4.40-6.38) Hgb 13.6 g/dL L g/dL (13.7-17.5) Hct 40.6 % % (40.0-51.0) MCV 87.9 fL fL (81.5-99.8) MCH 29.4 pg pg (27.9-34.1) MCHC 33.5 g/dL g/dL (32.4-36.7) RDW 12.5 % % (11.5-15.2) Plt Count 381 10^3/uL 10^3/uL (150-400) MPV 9.4 fL fL (8.7-11.7) Neut % (Auto) 65.4 % % (39.3-74.2) Lymph % (Auto) 20.1 % % (15.0-45.0) [place] % (Auto) 8.5 % % (4.5-13.0) Eos % (Auto) 5.1 % % (0.6-7.6) Baso % (Auto) 0.4 % % (0.3-1.7) Nucleat RBC Rel Count 0.0 % % (0.0-0.2) Absolute Neuts (auto) 7.26 10^3/uL H 10^3/uL (1.70-6.50) Absolute Lymphs (auto) 2.24 10^3/uL 10^3/uL (1.00-3.00) Absolute Monos (auto) 0.94 10^3/uL H 10^3/uL (0.30-0.80) Absolute Eos (auto) 0.57 10^3/uL H 10^3/uL (0.03-0.40) Absolute Basos (auto) 0.05 10^3/uL 10^3/uL (0.02-0.10) Absolute Nucleated RBC 0.00 10^3/uL 10^3/uL (0-0.01) Immature Gran % 0.5 % % (0.0-1.1) Immature Gran # 0.06 10^3/uL 10^3/uL (0.00-0.10) PT 14.4 SEC SEC (12.0-15.0) INR 1.13 (0.83-1.16) APTT 29.8 SEC SEC (23.0-38.0) Sodium 139 mEq/L mEq/L (134-144) Potassium 4.3 mEq/L mEq/L (3.5-5.2) Chloride 101 mEq/L mEq/L (97-110) Carbon Dioxide 24 mEq/l mEq/l (22-31) Anion Gap 14 mEq/L mEq/L (8-16) BUN 16 mg/dL mg/dL (7-23) Creatinine 1.2 mg/dL mg/dL (0.7-1.3) Estimated GFR > 60 Glucose 116 mg/dL H mg/dL (70-100) Calcium 9.5 mg/dL mg/dL (8.5-10.4) Troponin I 0.040 ng/mL H ng/mL (0.000-0.034) Medications Given: Discontinued Medications Atropine Sulfate (Atropine 1 Mg/10 Ml Syringe) 1 mg IVP EDNOW ONE Stop: 07/07/17 15:37 Last Admin: 07/07/17 15:34 Dose: 1 mg Departure - Departure Disposition: [facility] Inpatient Acute Clinical Impression: Asystole, Coronary artery disease Condition: Fair
[2017-07-07] MEDS ORDERED: ATROPINE SULFATE 1 MG/10 ML SYR IVP ONE ×2 (15:36)
[2017-07-07 15:40] LABS: PLATELET COUNT 381 10^3/uL (150-400)
[2017-07-07 15:52] LABS: INR 1.13 (0.83-1.16); PROTIME(PATIENT) 14.4 SEC (12.0-15.0)
--- NOTE | 2017-07-07 16:31 | ECHO ---
[email or web address] [address] [address] Main: [phone] Fax: Transthoracic Echocardiogram Name: ARIA GONZALEZ MR#: [id number] Study Date: 07/07/2017 Study Time: 03:21 PM Date of : 1950 Age: 66 year(s) Height: 182.9 cm (72 in.) Weight: 102.06 kg (225 lb.) BSA: 2.24 m2 Gender: Male Examination: Echo Indication: s/p recent CABG; asystole and CPR in ER Image Quality: Contrast: Requested by: Caden Wilkins BP: / Heart Rate: Rhythm: Indication: s/p recent CABG; asystole and CPR in ER Procedure Staff Roll Scale Man: Deshaun Cameron Reading Physician: Ivan Stanton Requesting Provider: Conclusions: No pericardial effusion. Normal left ventricular systolic function ejection fraction 55%. Regional wall motion abnormalities consistent with postoperative state. Measurements: Chambers Valvular Assessment AV/MV Valvular Assessment TV/PV Normal Normal Normal Name Value Range Name Value Range Name Value Range Ao Latricia (MM): 3.4 cm (2.2 cm-3.7 AV Vmax: 0.99 m/s (1 m/s-1.7 PV Vmax: 0.71 m/s (0.6 m/s-0.9 cm) m/s) m/s) IVSd (2D): 1.1 cm (0.6 cm-1.1 AV maxP mmHg ( - ) PV PGmax: 2 mmHg ( - ) cm) LVOT Vmax: 0.70 m/s (0.7 m/s-1.1 LVDd (2D): 4.2 cm (4.2 cm-5.9 m/s) cm) MV E Vmax: 0.49 m/s ( - ) LVDs (2D): 3.0 cm (2.1 cm-4 MV A Vmax: 0.43 m/s ( - ) cm) MV E/A: 1.14 ( - ) LVPWd (2D): 1.1 cm (0.6 cm-1 cm) LVEF (2D): 55 (>=54 %) Continued Measurements: Chambers Valvular Assessment AV/MV Name Value Name Value LADs Lon.2 cm MV E/E' Septal: 16.90 LA Area: 15.9 cm2 MV E/E' Lateral: 8.90 Findings: Left Ventricle: Normal size left ventricle. Normal global systolic LV function. EF is 55 %. Post-op septal motion Patient: ARIA GONZALEZ Study Date: 07/07/2017 Page 1 of 2 03:21 PM noted. Right Ventricle: Normal size right ventricle. Normal RV function. Left Atrium: The left atrium is normal in size. Right Atrium: The right atrium is normal in size. Mitral Valve: The mitral valve is normal in appearance. There is no mitral valve regurgitation. Aortic Valve: The aortic valve is normal in appearance. There is no aortic valve regurgitation. No aortic valve stenosis is present. Tricuspid Valve: The tricuspid valve appears normal. There is no tricuspid valve regurgitation. Pulmonary artery pressure is not obtained due to inadequate TR jet. Pulmonic Valve: Pulmonary valve not well visualized. Aorta: Normal size aortic root measuring 3.4 cm. Pericardium: No pericardial effusion. There is pericardial fat. (No Signature Object) Patient: ARIA GONZALEZ Study Date: 07/07/2017 Page 2 of 2 03:21 PM [id number]
--- NOTE | 2017-07-07 16:31 | ECHO ---
[email or web address] [address] [address] Main: [phone] Fax: Transthoracic Echocardiogram Name: ARIA GONZALEZ MR#: [id number] Study Date: 07/07/2017 Study Time: 03:21 PM Date of : 1950 Age: 66 year(s) Height: 182.9 cm (72 in.) Weight: 102.06 kg (225 lb.) BSA: 2.24 m2 Gender: Male Examination: Echo Indication: s/p recent CABG; asystole and CPR in ER Image Quality: Contrast: Requested by: Caden Wilkins BP: / Heart Rate: Rhythm: Indication: s/p recent CABG; asystole and CPR in ER Procedure Staff Coffee Shop Attendant: Deshaun Cameron Reading Physician: Ivan Stanton Requesting Provider: Conclusions: No pericardial effusion. Normal left ventricular systolic function ejection fraction 55%. Regional wall motion abnormalities consistent with postoperative state. Measurements: Chambers Valvular Assessment AV/MV Valvular Assessment TV/PV Normal Normal Normal Name Value Range Name Value Range Name Value Range Ao Latricia (MM): 3.4 cm (2.2 cm-3.7 AV Vmax: 0.99 m/s (1 m/s-1.7 PV Vmax: 0.71 m/s (0.6 m/s-0.9 cm) m/s) m/s) IVSd (2D): 1.1 cm (0.6 cm-1.1 AV maxP mmHg ( - ) PV PGmax: 2 mmHg ( - ) cm) LVOT Vmax: 0.70 m/s (0.7 m/s-1.1 LVDd (2D): 4.2 cm (4.2 cm-5.9 m/s) cm) MV E Vmax: 0.49 m/s ( - ) LVDs (2D): 3.0 cm (2.1 cm-4 MV A Vmax: 0.43 m/s ( - ) cm) MV E/A: 1.14 ( - ) LVPWd (2D): 1.1 cm (0.6 cm-1 cm) LVEF (2D): 55 (>=54 %) Continued Measurements: Chambers Valvular Assessment AV/MV Name Value Name Value LADs Lon.2 cm MV E/E' Septal: 16.90 LA Area: 15.9 cm2 MV E/E' Lateral: 8.90 Findings: Left Ventricle: Normal size left ventricle. Normal global systolic LV function. EF is 55 %. Post-op septal motion Patient: ARIA GONZALEZ Study Date: 07/07/2017 Page 1 of 2 03:21 PM noted. Right Ventricle: Normal size right ventricle. Normal RV function. Left Atrium: The left atrium is normal in size. Right Atrium: The right atrium is normal in size. Mitral Valve: The mitral valve is normal in appearance. There is no mitral valve regurgitation. Aortic Valve: The aortic valve is normal in appearance. There is no aortic valve regurgitation. No aortic valve stenosis is present. Tricuspid Valve: The tricuspid valve appears normal. There is no tricuspid valve regurgitation. Pulmonary artery pressure is not obtained due to inadequate TR jet. Pulmonic Valve: Pulmonary valve not well visualized. Aorta: Normal size aortic root measuring 3.4 cm. Pericardium: No pericardial effusion. There is pericardial fat. (No Signature Object) Patient: ARIA GONZALEZ Study Date: 07/07/2017 Page 2 of 2 03:21 PM [id number]
--- NOTE | 2017-07-07 16:31 | ECHO ---
[email or web address] [address] [address] Main: [phone] Fax: Transthoracic Echocardiogram Name: ARIA GONZALEZ MR#: [id number] Study Date: 07/07/2017 Study Time: 03:21 PM Date of : 1950 Age: 66 year(s) Height: 182.9 cm (72 in.) Weight: 102.06 kg (225 lb.) BSA: 2.24 m2 Gender: Male Examination: Echo Indication: s/p recent CABG; asystole and CPR in ER Image Quality: Contrast: Requested by: Caden Wilkins BP: / Heart Rate: Rhythm: Indication: s/p recent CABG; asystole and CPR in ER Procedure Staff High Pressure Boiler Operator: Deshaun Cameron Reading Physician: Ivan Stanton Requesting Provider: Conclusions: No pericardial effusion. Normal left ventricular systolic function ejection fraction 55%. Regional wall motion abnormalities consistent with postoperative state. Measurements: Chambers Valvular Assessment AV/MV Valvular Assessment TV/PV Normal Normal Normal Name Value Range Name Value Range Name Value Range Ao Latricia (MM): 3.4 cm (2.2 cm-3.7 AV Vmax: 0.99 m/s (1 m/s-1.7 PV Vmax: 0.71 m/s (0.6 m/s-0.9 cm) m/s) m/s) IVSd (2D): 1.1 cm (0.6 cm-1.1 AV maxP mmHg ( - ) PV PGmax: 2 mmHg ( - ) cm) LVOT Vmax: 0.70 m/s (0.7 m/s-1.1 LVDd (2D): 4.2 cm (4.2 cm-5.9 m/s) cm) MV E Vmax: 0.49 m/s ( - ) LVDs (2D): 3.0 cm (2.1 cm-4 MV A Vmax: 0.43 m/s ( - ) cm) MV E/A: 1.14 ( - ) LVPWd (2D): 1.1 cm (0.6 cm-1 cm) LVEF (2D): 55 (>=54 %) Continued Measurements: Chambers Valvular Assessment AV/MV Name Value Name Value LADs Lon.2 cm MV E/E' Septal: 16.90 LA Area: 15.9 cm2 MV E/E' Lateral: 8.90 Findings: Left Ventricle: Normal size left ventricle. Normal global systolic LV function. EF is 55 %. Post-op septal motion Patient: ARIA GONZALEZ Study Date: 07/07/2017 Page 1 of 2 03:21 PM noted. Right Ventricle: Normal size right ventricle. Normal RV function. Left Atrium: The left atrium is normal in size. Right Atrium: The right atrium is normal in size. Mitral Valve: The mitral valve is normal in appearance. There is no mitral valve regurgitation. Aortic Valve: The aortic valve is normal in appearance. There is no aortic valve regurgitation. No aortic valve stenosis is present. Tricuspid Valve: The tricuspid valve appears normal. There is no tricuspid valve regurgitation. Pulmonary artery pressure is not obtained due to inadequate TR jet. Pulmonic Valve: Pulmonary valve not well visualized. Aorta: Normal size aortic root measuring 3.4 cm. Pericardium: No pericardial effusion. There is pericardial fat. (No Signature Object) Patient: ARIA GONZALEZ Study Date: 07/07/2017 Page 2 of 2 03:21 PM [id number]
--- NOTE | 2017-07-07 17:20 | PDCARCONS ---
Cardiology Consult Reason for Consult: Vaso-vagal syncope Chief Complaint: tunnel vision. Requesting Physician: Skylar History of Present Illness: 66 yo male well known to me s/p CABG in early June has been recovering at home. Today he developed left sided pleuritic chest pain. He called in and was advised to come to the ED. His pain was beeter here. Shortly after receiving an IV he became clammy, tunnel vision with hypotension and development of high degree av block and syncope. He received cpr briefly, Rhythm recovered spontaneously. A bit later, a second episodes of clamminess, nausea and hypotension developed. This episode did not lead to syncope or jeny- arrhythmia. I witness a mild event with blood pressure in the 80's resolved with lying flat. He has been taking lasix and metoprolol. He has a history of a vagal event related to a injury in the 70's. He did have a jeny episode per Dr. Cheng at the time of surgery. He denies chest pain, PND, orthopnea. He has had no palpitations. He has a history of hypertension. History Information - Allergies/Home Medication List Allergies/Adverse Reactions: No Known Allergies Allergy (Verified 07/07/17 14:29) Home Medications: Aspirin [Aspirin 325 mg (*)] 325 mg PO DAILY 06/12/17 [Last Taken 06/11/17] Past Medical History: - Social History Smoking Status: Former smoker Physical Exam Physical Exam: Temp Pulse Resp BP Pulse Ox 37 C 86 23 H 106/76 95 07/07/17 14:29 07/07/17 16:15 07/07/17 16:15 07/07/17 16:15 07/07/17 16:15 O2 (L/minute) 4 Constitutional: no apparent distress, other (pale, dry mucus membranes.) Eyes: PERRL, anicteric sclera Ears, Nose, Mouth, Throat: dry mucous membranes Cardiovascular: regular rate and rhythym, No systolic murmur, No JVD Peripheral Pulses: 1+: carotid (R), carotid (L), femoral (R), femoral (L) Respiratory: no respiratory distress, no rales or rhonchi, No expiratory wheeze , No inspiratory crackles Gastrointestinal: normoactive bowel sounds, soft, non-tender abdomen, no palpable masses, No tenderness Skin: warm, No rash Neurologic: AAOx3, No facial droop Psychiatric: interacting appropriately, not anxious Lymph, Heme, Immunologic: no cervical LAD, no supraclavicular LAD Lab and Imaging 07/07/17 14:58 07/07/17 14:58 WBC 11.12 10^3/uL (3.80-9.50) H 07/07/17 14:58 RBC 4.62 10^6/uL (4.40-6.38) 07/07/17 14:58 Hgb 13.6 g/dL (13.7-17.5) L 07/07/17 14:58 Hct 40.6 % (40.0-51.0) 07/07/17 14:58 MCV 87.9 fL (81.5-99.8) 07/07/17 14:58 MCH 29.4 pg (27.9-34.1) 07/07/17 14:58 MCHC 33.5 g/dL (32.4-36.7) 07/07/17 14:58 RDW 12.5 % (11.5-15.2) 07/07/17 14:58 Plt Count 381 10^3/uL (150-400) 07/07/17 14:58 MPV 9.4 fL (8.7-11.7) 07/07/17 14:58 Neut % (Auto) 65.4 % (39.3-74.2) 07/07/17 14:58 Lymph % (Auto) 20.1 % (15.0-45.0) 07/07/17 14:58 [place] % (Auto) 8.5 % (4.5-13.0) 07/07/17 14:58 Eos % (Auto) 5.1 % (0.6-7.6) 07/07/17 14:58 Baso % (Auto) 0.4 % (0.3-1.7) 07/07/17 14:58 Nucleat RBC Rel Count 0.0 % (0.0-0.2) 07/07/17 14:58 Absolute Neuts (auto) 7.26 10^3/uL (1.70-6.50) H 07/07/17 14:58 Absolute Lymphs (auto) 2.24 10^3/uL (1.00-3.00) 07/07/17 14:58 Absolute Monos (auto) 0.94 10^3/uL (0.30-0.80) H 07/07/17 14:58 Absolute Eos (auto) 0.57 10^3/uL (0.03-0.40) H 07/07/17 14:58 Absolute Basos (auto) 0.05 10^3/uL (0.02-0.10) 07/07/17 14:58 Absolute Nucleated RBC 0.00 10^3/uL (0-0.01) 07/07/17 14:58 Immature Gran % 0.5 % (0.0-1.1) 07/07/17 14:58 Immature Gran # 0.06 10^3/uL (0.00-0.10) 07/07/17 14:58 PT 14.4 SEC (12.0-15.0) 07/07/17 14:58 INR 1.13 (0.83-1.16) 07/07/17 14:58 APTT 29.8 SEC (23.0-38.0) 07/07/17 14:58 Sodium 139 mEq/L (134-144) 07/07/17 14:58 Potassium 4.3 mEq/L (3.5-5.2) 07/07/17 14:58 Chloride 101 mEq/L (97-110) 07/07/17 14:58 Carbon Dioxide 24 mEq/l (22-31) 07/07/17 14:58 Anion Gap 14 mEq/L (8-16) 07/07/17 14:58 BUN 16 mg/dL (7-23) 07/07/17 14:58 Creatinine 1.2 mg/dL (0.7-1.3) 07/07/17 14:58 Estimated GFR > 60 07/07/17 14:58 Glucose 116 mg/dL (70-100) H 07/07/17 14:58 Calcium 9.5 mg/dL (8.5-10.4) 07/07/17 14:58 Troponin I 0.040 ng/mL (0.000-0.034) H 07/07/17 14:58 Interpretation: Elevated right hemidiaphragm. EKG additional interpertation: SR with LAFB. Telemetry: sinus rhythm with development of bradycardia, 3 degree av block no ventricular escape. A/P Assessment: 1. Pleuritic chest pain. 2. Vagal syncope with cardio-inhibitory response. 3. CAD s/p CABG Impression; Limited Left sided pleuritic chest pain. Unclear etiology at this point. Mostly resolved. Clear vagally mediated syncope, likely worse with beta-sb on board. Likely triggered by IV placement. Recommend: 1. CT angio rule out PE assess by-pass grafts. 2. Observation. No clear indication at this point for pacing. 3. Hold beta-sb and lasix 4. Gently hydration. Review of Systems Review of Systems: - Review of Systems Constitutional: chills, malaise, weakness. denies: fever EENTM: no symptoms reported Respiratory: shortness of breath, hurts to breath. denies: cough, orthopnea, wheezing Cardiac: edema, lightheadedness, syncope. denies: chest pain, irregular heart rate, palpitations Gastrointestinal/Abdominal: diarrhea, nausea. denies: vomiting, black stools Genitourinary: no symptoms Musculoskelatal: no symptoms Skin: no symptoms Neurological: no symptoms Hematologic/Lymphatic: no symptoms reported Past Medical History PMH: - Personal History Current Tetanus/Diphtheria Vaccine: Unsure - Medical/Surgical History Hx Asthma: No Hx Chronic Respiratory Disease: No Hx Cardiac Disease: Yes Hx Diabetes: No Hx Renal Disease: No Hx Alcoholism: No Hx Cirrhosis: No Hx HIV/AIDS: No Hx Splenectomy or Spleen Trauma: No Other PMH: STRESS TEST 10/21 OPEN HEART SURG. HTN, - Family History Significant Family History: No pertinent family hx - Social History Smoking Status: Former smoker Alcohol Use: None Drug Use: Marijuana Additional Social History:
--- NOTE | 2017-07-07 17:54 | PDGENHP ---
History and Physical - Chief Complaint CP - History of Present Illness This is a 66 yo male with recent CABG x 2 who presented to the E.D. for CP, Hypoxemia, and not feeling well x 2 days. Shortly after having an IV placed, he had a asystolic arrest. CPR was successful. Cards and CT surgery were consulted and saw the patient in the E.D. A TTE was unremarkable. A CXR showed cardiomegaly, no pneumo, a CTA is pending. At this point he has been stabilized. IVF have been started. No procedural interventions have been done. He is 2 weeks s/p CABG and was discharged on 06/19. He currently denies CP or SOB, although feels some Left sided rib pain on deep inspiration. He c/o bilateral leg swelling which is intermittent. He has been requiring O2 for the last 2 days. CBC was unremarkable. BMP unremarkable. PMHx: Metabolic syndrome, HTN, Anxiety, Obesity, PSHx: CABG x 2 FmHx: DM Soc: no tobacco, social etoh, cannabis History Information - Allergies/Home Medication List Allergies/Adverse Reactions: No Known Allergies Allergy (Verified 07/07/17 14:29) Home Medications: Aspirin [Aspirin 325 mg (*)] 325 mg PO DAILY 06/12/17 [Last Taken 07/07/17] Atorvastatin Calcium [Lipitor 80 mg] 80 mg PO DAILY 07/07/17 [Last Taken Unknown ] I have personally reviewed and updated: medical history, social history - Past Medical History hypertension - Family History Positive for: non-pertinent - Social History Smoking Status: Former smoker Alcohol Use: None Drug Use: Marijuana Review of Systems Review of Systems: ROS: 10pt was reviewed & negative except for what was stated in HPI & below Physical Exam Physical Exam: Temp Pulse Resp BP Pulse Ox 37 C 86 23 H 106/76 95 07/07/17 14:29 07/07/17 16:15 07/07/17 16:15 07/07/17 16:15 07/07/17 16:15 O2 (L/minute) 4 Constitutional: no apparent distress, appears nourished Eyes: PERRL, EOMI Ears, Nose, Mouth, Throat: moist mucous membranes, hearing normal Cardiovascular: regular rate and rhythym, edema Respiratory: no respiratory distress, reduced air movement Gastrointestinal: normoactive bowel sounds, soft, non-tender abdomen Skin: warm Neurologic: AAOx3 Psychiatric: interacting appropriately, not anxious, not encephalopathic Lab Data & Imaging Review 07/07/17 14:58 07/07/17 14:58 WBC 11.12 10^3/uL (3.80-9.50) H 07/07/17 14:58 RBC 4.62 10^6/uL (4.40-6.38) 07/07/17 14:58 Hgb 13.6 g/dL (13.7-17.5) L 07/07/17 14:58 Hct 40.6 % (40.0-51.0) 07/07/17 14:58 MCV 87.9 fL (81.5-99.8) 07/07/17 14:58 MCH 29.4 pg (27.9-34.1) 07/07/17 14:58 MCHC 33.5 g/dL (32.4-36.7) 07/07/17 14:58 RDW 12.5 % (11.5-15.2) 07/07/17 14:58 Plt Count 381 10^3/uL (150-400) 07/07/17 14:58 MPV 9.4 fL (8.7-11.7) 07/07/17 14:58 Neut % (Auto) 65.4 % (39.3-74.2) 07/07/17 14:58 Lymph % (Auto) 20.1 % (15.0-45.0) 07/07/17 14:58 [place] % (Auto) 8.5 % (4.5-13.0) 07/07/17 14:58 Eos % (Auto) 5.1 % (0.6-7.6) 07/07/17 14:58 Baso % (Auto) 0.4 % (0.3-1.7) 07/07/17 14:58 Nucleat RBC Rel Count 0.0 % (0.0-0.2) 07/07/17 14:58 Absolute Neuts (auto) 7.26 10^3/uL (1.70-6.50) H 07/07/17 14:58 Absolute Lymphs (auto) 2.24 10^3/uL (1.00-3.00) 07/07/17 14:58 Absolute Monos (auto) 0.94 10^3/uL (0.30-0.80) H 07/07/17 14:58 Absolute Eos (auto) 0.57 10^3/uL (0.03-0.40) H 07/07/17 14:58 Absolute Basos (auto) 0.05 10^3/uL (0.02-0.10) 07/07/17 14:58 Absolute Nucleated RBC 0.00 10^3/uL (0-0.01) 07/07/17 14:58 Immature Gran % 0.5 % (0.0-1.1) 07/07/17 14:58 Immature Gran # 0.06 10^3/uL (0.00-0.10) 07/07/17 14:58 PT 14.4 SEC (12.0-15.0) 07/07/17 14:58 INR 1.13 (0.83-1.16) 07/07/17 14:58 APTT 29.8 SEC (23.0-38.0) 07/07/17 14:58 Sodium 139 mEq/L (134-144) 07/07/17 14:58 Potassium 4.3 mEq/L (3.5-5.2) 07/07/17 14:58 Chloride 101 mEq/L (97-110) 07/07/17 14:58 Carbon Dioxide 24 mEq/l (22-31) 07/07/17 14:58 Anion Gap 14 mEq/L (8-16) 07/07/17 14:58 BUN 16 mg/dL (7-23) 07/07/17 14:58 Creatinine 1.2 mg/dL (0.7-1.3) 07/07/17 14:58 Estimated GFR > 60 07/07/17 14:58 Glucose 116 mg/dL (70-100) H 07/07/17 14:58 Calcium 9.5 mg/dL (8.5-10.4) 07/07/17 14:58 Troponin I 0.040 ng/mL (0.000-0.034) H 07/07/17 14:58 Assessment & Plan Assessment: #Asystole event possibly initiated by vasovagal event following IV insertion #recent CABG #CAD Plan: -Hold BB -Hold Lasix -IVF were already given in the E.D, I will not continue at this time -Await CTA -Telemetry -Admit to intermediate care -Full Code -Lovenox for DVT proph -Cards and CT surgery following
--- NOTE | 2017-07-07 18:58 | PDMN ---
Medical Necessity Medical necessity: C/M review: Patient meets INPT criteria under [facility] [place] M-575 Ventricular arrhythmias; ; Acute asystole arrest requiring 30 cycles of CPR in ED-was resuscitated - possibly initiated by vasovagal event after IV insertion, left sided rib pain on inspiration, requiring ongoing cardiac monitoring, close monitoring, comorbid 06/13/2017-06/19/2017 hospitalization which included CABG 06/14/2017, CAD, obesity, metabolic syndrome, hypertension, anxiety. MD anticipates > 2 MN LOS for ongoing med nec for eval and TX of above.
--- NOTE | 2017-07-07 18:58 | PDMN ---
Medical Necessity Medical necessity: C/M review: [place] [facility] [place] Vent[place]ias; ; Acute asystole arrest requiring 30 cycles of CPR in ED-was resuscitated - possibly initiated by vasovagal event after IV insertion, left sided rib pain on inspiration, requiring ongoing cardiac monitoring, close monitoring, comorbid 06/13/2017-06/19/2017 hospitalization which included CABG 06/14/2017, CAD, obesity, metabolic syndrome, hypertension, anxiety. MD anticipates > 2 MN LOS for ongoing med nec for eval and TX of above.
--- NOTE | 2017-07-07 18:58 | PDMN ---
Medical Necessity Medical necessity: C/M review: Patient meets INPT criteria under [facility] [place]-575 Ventricular arrhythmias; ; Acute asystole arrest requiring 30 cycles of CPR in ED-was resuscitated - possibly initiated by vasovagal event after IV insertion, left sided rib pain on inspiration, requiring ongoing cardiac monitoring, close monitoring, comorbid 06/13/2017-06/19/2017 hospitalization which included CABG 06/14/2017, CAD, obesity, metabolic syndrome, hypertension, anxiety. MD anticipates > 2 MN LOS for ongoing med nec for eval and TX of above.
[2017-07-08 04:42] LABS: PLATELET COUNT 273 10^3/uL (150-400)
--- NOTE | 2017-07-08 06:24 | CPEKG ---
Heart Rate: 85 RR Interval: 706 P-R Interval: 168 QRSD Interval: 84 QT Interval: 356 QTC Interval: 424 P Hubbard: 27 QRS Hubbard: -11 T Wave Hubbard: 78 EKG Severity - BORDERLINE ECG - EKG Impression: SINUS RHYTHM EKG Impression: ABERRANT COMPLEX, POSSIBLY SUPRAVENTRICULAR EKG Impression: BORDERLINE T ABNORMALITIES, ANT-LAT LEADS Electronically Signed By: Jonah He 08-Jul-2017 08:23:07
[2017-07-08] MEDS ORDERED: ENOXAPARIN 30 MG/0.3 ML SYR SC SCH ×2 (09:00)
[2017-07-08] MEDS ORDERED: ENOXAPARIN 40 MG/0.4 ML SYR SC SCH ×2 (09:00)
[2017-07-08] MEDS ORDERED: ASPIRIN EC 81 MG TAB PO SCH ×2 (09:00)
--- NOTE | 2017-07-08 09:22 | PDCARPN ---
Cardiology Progress Note Chief Complaint: Reason for admission was left pleuritic chest pain Patient had syncopal episode with heart block while an IV was being placed in the emergency department yesterday Assessment/Plan: Assessment: 1. Status post CABG 2. Left pleuritic chest pain, small left pleural effusion unchanged from previously on CT scan 3. Cardio inhibitory syncope, situational related to IV placement Plan: 1. Discussed with patient that his syncopal episode is consistent with cardioinhibitory syncope. There is no indication for permanent pacing at this time. Monitoring overnight has not shown any evidence of high-grade heart block 2. Okay to be discharged home from the Cardiology standpoint. 07/08/17 09:21 Subjective: Feels well today, chest pain is resolved. Has not had any further episodes of dizziness or syncope. Objective: Vital Signs (8 Hrs) Temp Pulse Resp BP Pulse Ox 07/08/17 09:00 98 20 104/59 L 91 L 07/08/17 07:56 36.8 C 84 21 H 120/75 93 07/08/17 07:00 88 17 104/65 96 07/08/17 05:55 79 20 107/58 L 95 07/08/17 05:00 81 20 107/58 L 95 07/08/17 04:00 36.7 C 82 20 112/69 95 07/08/17 03:00 78 10 L 102/63 95 07/08/17 02:00 77 21 H 104/61 97 Intake/Output (24 Hrs) 07/06/17 07/07/17 07/08/17 11:59 11:59 11:59 Intake Total 2850 Balance 2850 Intake: Oral (ml) 750 IV Infused (ml) 2100 Other: Weight 101 kg Intake Quantity Yes Sufficient Number of Voids Toilet 2 Result Diagrams: 07/08/17 04:35 07/08/17 04:35 Cardiac Labs: Cardiac Lab Results (72 Hrs) 07/07/17 07/07/17 22:30 16:30 Troponin I 0.042 H 0.040 H EKG: Normal sinus rhythm Telemetry: Normal sinus rhythm Echocardiogram: Normal, no significant pericardial effusion ICD10 Worksheet Patient Problems: Problems Problem Status Onset Asystole Acute Coronary artery disease Acute S/P CABG x 2 Acute Chest pain Acute Hypertension Acute
[2017-07-08] MEDS ORDERED: ACETAMINOPHEN 325 MG TAB PO PRN ×2 (10:34)
--- NOTE | 2017-07-08 11:12 | GDS ---
[f rep st] DISCHARGE SUMMARY DIAGNOSES: 1. Bradycardic/asystolic arrest thought secondary to cardioinhibitory syncope, pronounced vagal resp onse. 2. Coronary artery disease status post recent CABG. Follow up with Dr. Cheng. 3. Left pleuritic chest pain likely from left pleural effusion, unchanged from previous CT scan. 4. Hypertension. 5. Anxiety. 6. Obesity. CONSULTATIONS: Dr. Ivan Stanton, Cardiology. PROCEDURES DONE: Chest and thoracic CT angiogram: Negative for PE. Echocardiogram. HOSPITAL COURSE: The patient is a 66-year-old with recent [address] Cheng. He had been d oing well at work, however, developed some left-sided chest pain. He came into the emergency departm ent after calling the on-call nurse. While putting on an IV, he had a bradycardic and asystolic arre st requiring minimal CPR and prompt resuscitation. He was monitored overnight in the intensive care unit and did well. It was felt after Cardiology saw him and reviewed his echocardiogram and CT angio gram that he likely experienced a heightened vagal response. His medications were adjusted. His bet a sb was decreased from 25 twice daily to 12.5 twice daily. He had no events on telemetry overn ight. His troponins were stable. CONDITION ON DISCHARGE: Good. Vital signs are stable. He is slightly tachycardic with a heart rate in the 90s, likely due to discontinuing his metoprolol. It will be resumed at half dose from previo us. He is alert and oriented. He had no further evidence of symptoms and is ambulating without prob lems. DISCHARGE MEDICATIONS: Please see discharge medication form. FOLLOWUP: He will follow up with Cardiology and Cardiothoracic Surgery as an outpatient. Total time spent with patient on day of discharge and coordination of care is 35 minutes. /[id number]/MODL
[2017-07-08 12:31] VITALS: BP 107/68; PULSE 85; RESP 24; O2SAT 94
[2017-07-08 13:28] VITALS: TEMP 97.6
[2017-07-09] MEDS ORDERED: ATORVASTATIN CALCIUM 40 MG TAB PO SCH ×2 (09:00)
--- NOTE | 2017-07-09 16:47 | ASDISCHSUM ---
Discharge Information Plan Status:Home with No Needs Medically Cleared to Leave:07/08/2017 Discharge Date:07/08/2017 01:30 PM CM D/C Disposition:Home, Routine, Self-Care ADT D/C Disposition:Home, Routine, Self-Care Projected Discharge Date:07/08/2017 12:00 AM Transportation at D/C:Family Discharge Delay Reason: Follow-Up Date:07/08/2017 12:00 AM Discharge Slot: Final Diagnosis:CP, Cardiac arrest Placement Information Patient Contact Information Contact Name:BROOKS Relationship: Address:[address] City:[place] Alternate Phone: State/Zip Code:[place] [address] Email: Financial Information Financial Class:[facility] Primary Plan Desc:[facility] Primary Plan Number:[id number] Secondary Plan Desc:MEDICARE INPATIENT Secondary Plan Number:[id number] Assessment Information Intervention Information
--- NOTE | 2017-07-09 16:47 | ASDISCHSUM ---
Discharge Information Plan Status:Home with No Needs Medically Cleared to Leave:07/08/2017 Discharge Date:07/08/2017 01:30 PM CM D/C Disposition:Home, Routine, Self-Care ADT D/C Disposition:Home, Routine, Self-Care Projected Discharge Date:07/08/2017 12:00 AM Transportation at D/C:Family Discharge Delay Reason: Follow-Up Date:07/08/2017 12:00 AM Discharge Slot: Final Diagnosis:CP, Cardiac arrest Placement Information Patient Contact Information Contact Name:BROOKS Relationship: Address:[address] City:[place] Alternate Phone: State/Zip Code:[place] [address] Email: Financial Information Financial Class:[facility] Primary Plan Desc:[facility] Primary Plan Number:[id number] Secondary Plan Desc:MEDICARE INPATIENT Secondary Plan Number:[id number] Assessment Information Intervention Information
--- NOTE | 2017-07-09 16:47 | ASDISCHSUM ---
Discharge Information Plan Status:Home with No Needs Medically Cleared to Leave:07/08/2017 Discharge Date:07/08/2017 01:30 PM CM D/C Disposition:Home, Routine, Self-Care ADT D/C Disposition:Home, Routine, Self-Care Projected Discharge Date:07/08/2017 12:00 AM Transportation at D/C:Family Discharge Delay Reason: Follow-Up Date:07/08/2017 12:00 AM Discharge Slot: Final Diagnosis:CP, Cardiac arrest Placement Information Patient Contact Information Contact Name:BROOKS Relationship: Address:[address] City:[place] Alternate Phone: State/Zip Code:[place] [address] Email: Financial Information Financial Class:[facility] Primary Plan Desc:[facility] Primary Plan Number:[id number] Secondary Plan Desc:MEDICARE INPATIENT Secondary Plan Number:[id number] Assessment Information Intervention Information
== END 2017-07-08 13:30 | disposition home or self-care (01) | DRG 312 ==
LOC: F2N 17:56
PROVIDERS: ADMIT Thoracic Surgery (Cardiothoracic Vascular Surgery); ATTEND Thoracic Surgery (Cardiothoracic Vascular Surgery)
PROC: 5A12012 Performance of Cardiac Output, Single, Manual (ICD-10-PCS; principal; 2017-07-07)
DX: R55 Syncope and collapse (principal); I45.5 Other specified heart block; I25.10 Atherosclerotic heart disease of native coronary artery without angina pectoris; I51.7 Cardiomegaly; Z95.1 Presence of aortocoronary bypass graft; I10 Essential (primary) hypertension; F41.9 Anxiety disorder, unspecified; E88.81 Metabolic syndrome and other insulin resistance; F12.90 Cannabis use, unspecified, uncomplicated; E66.9 Obesity, unspecified; Z68.30 Body mass index [BMI] 30.0-30.9, adult; Z87.891 Personal history of nicotine dependence
CPT/HCPCS: 96374; J0461; J1650; Q9967

== ENCOUNTER → 2017-07-25 | Outpatient (CLI) | payer OTHER | LOC: FIMAGING 08:44 | PROVIDERS: ATTEND Thoracic Surgery (Cardiothoracic Vascular Surgery) | DX: J90 Pleural effusion, not elsewhere classified (principal); Z95.1 Presence of aortocoronary bypass graft ==

== ENCOUNTER → 2017-11-02 | Outpatient (CLI) | payer OTHER | LOC: FIMAGING 09:56 | PROVIDERS: ATTEND Thoracic Surgery (Cardiothoracic Vascular Surgery) | DX: Z48.812 Encounter for surgical aftercare following surgery on the circulatory system (principal); J98.4 Other disorders of lung; Z95.1 Presence of aortocoronary bypass graft ==

== ENCOUNTER 2017-12-08 20:54 | Emergency (ER) | payer OTHER ==
--- NOTE | 2017-12-08 22:02 | EDPHY ---
H & P Stated Complaint: SOB X 3 HOURS/STOPPED TAKING O2 2 WEEKS AGO LIMITED USE Time Seen by Provider: 12/08/17 21:50 HPI/ROS: Chief Complaint: Short of breath HPI: 59-year-old male who is approximately 5 months status post coronary artery bypass graft is presenting complaining of shortness of breath which began about 5 o'clock this evening. Patient states that up until 2 weeks ago he had been on a p.r.n. Supple little oxygen at 2 L. Patient fell 2 weeks ago that he no longer required and returned. Is patient states since that time he has had a couple of episodes where he has had increasing shortness of breath. The last time was about a week ago and lasted for several hours away. Patient began having shortness of breath at 5 o'clock tonight. It was a little bit exertional. [place] [address] He came down to [place] to his daughter 's house but did not have any significant improvement. Patient does have a history of seasonal allergies and feels that he shortness of breath may have been secondary to a flare up from a couple days ago. He has not had any chest pain. No leg swelling. No fevers or chills. No cough. No nausea or vomiting. ROS: 10 point Review of Systems is negative except as noted in the HPI. PMH: Coronary artery disease status post CABG Social History: No smoking, no alcohol, no recreational drug use Family History: non-contributory Physical Exam: Gen: Awake, Alert, No Distress HEENT: Nose: no rhinorrhea Eyes: PERRLA, EOMI Mouth: Moist mucosa Neck: Supple, no JVD Chest: nontender, lungs clear to auscultation Heart: S1, S2 normal, no murmur Abd: Soft, non-tender, no guarding Back: no CVA tenderness, no midline tenderness Ext: no edema, non-tender Skin: no rash Neuro: CN II-XII intact, Sensation grossly intact, Strength 5/5 in bilateral upper and lower extremities - Personal History Current Tetanus Diphtheria and Acellular Pertussis (TDAP): Unsure - Medical/Surgical History Hx Asthma: No Hx Chronic Respiratory Disease: Yes Hx Diabetes: No Hx Cardiac Disease: Yes Hx Renal Disease: No Hx Cirrhosis: No Hx Alcoholism: No Hx HIV/AIDS: No Hx Splenectomy or Spleen Trauma: No Other PMH: STRESS TEST 10/21 OPEN HEART SURG, BYPASS DOUBLE 06/2017, O2 DEPENDENT , BUT DOES NOT USE CONSISTENT. HTN, - Social History Smoking Status: Former smoker Constitutional: Initial Vital Signs Temperature (C) 36.9 C 12/08/17 21:16 Heart Rate 89 12/08/17 21:16 Respiratory Rate 16 12/08/17 21:16 Blood Pressure 158/93 H 12/08/17 21:16 O2 Sat (%) 90 L 12/08/17 21:16 O2 Delivery Mode Room Air Allergies/Adverse Reactions: No Known Allergies Allergy (Verified 07/07/17 14:29) Home Medications: Medication Instructions Recorded Aspirin [Aspirin 325 mg (*)] 325 mg PO DAILY 06/12/17 Acetaminophen [Tylenol 325mg (*)] 650 mg PO Q4HRS PRN tab 06/19/17 Furosemide [Lasix 40 MG (*)] 40 mg PO DAILY #15 tab 06/19/17 Potassium Cl [Klor-Con 20 meq (*)] 20 meq PO DAILY #15 tab 06/19/17 Atorvastatin Calcium [Lipitor 80 80 mg PO DAILY 07/07/17 mg] Metoprolol Tartrate [Lopressor 25 12.5 mg PO BID #60 tab 07/08/17 mg (*)] Medical Decision Making - Diagnostics Imaging Results: Imaging Impressions Chest X-Ray 12/08/17 22:00 Impression: Radiographically similar to 11/02/2017. Imaging: I viewed and interpreted images myself ED Course/Re-evaluation: Patient's chest x-ray is unremarkable. Laboratory evaluations are unremarkable including a normal BMP. Patient is actually now satting 92% on room air. I have discussed with him at length. Plan will be to discharge him to home. He will be staying at this elevation with his daughter over the weekend. I have given a prescription for oxygen. He feels he can likely get this filled tomorrow however if necessary he can stay at his daughter's until Monday. He is comfortable with plan. There is no indication for admission or further evaluation at this time. - Data Points Laboratory Results: Laboratory Results 12/08/17 22:13 12/08/17 22:13 12/08/17 12/08/17 22:13 22:13 WBC 10.72 10^3/uL H 10^3/uL (3.80-9.50) RBC 5.78 10^6/uL 10^6/uL (4.40-6.38) Hgb 15.8 g/dL g/dL (13.7-17.5) Hct 48.4 % % (40.0-51.0) MCV 83.7 fL fL (81.5-99.8) MCH 27.3 pg L pg (27.9-34.1) MCHC 32.6 g/dL g/dL (32.4-36.7) RDW 14.6 % % (11.5-15.2) Plt Count 248 10^3/uL 10^3/uL (150-400) MPV 9.4 fL fL (8.7-11.7) Neut % (Auto) 61.3 % % (39.3-74.2) Lymph % (Auto) 21.6 % % (15.0-45.0) [place] % (Auto) 6.2 % % (4.5-13.0) Eos % (Auto) 10.0 % H % (0.6-7.6) Baso % (Auto) 0.7 % % (0.3-1.7) Nucleat RBC Rel Count 0.0 % % (0.0-0.2) Absolute Neuts (auto) 6.58 10^3/uL H 10^3/uL (1.70-6.50) Absolute Lymphs (auto) 2.32 10^3/uL 10^3/uL (1.00-3.00) Absolute Monos (auto) 0.66 10^3/uL 10^3/uL (0.30-0.80) Absolute Eos (auto) 1.07 10^3/uL H 10^3/uL (0.03-0.40) Absolute Basos (auto) 0.07 10^3/uL 10^3/uL (0.02-0.10) Absolute Nucleated RBC 0.00 10^3/uL 10^3/uL (0-0.01) Immature Gran % 0.2 % % (0.0-1.1) Immature Gran # 0.02 10^3/uL 10^3/uL (0.00-0.10) Sodium 139 mEq/L mEq/L (135-145) Potassium 4.7 mEq/L mEq/L (3.5-5.2) Chloride 104 mEq/L mEq/L (97-110) Carbon Dioxide 24 mEq/l mEq/l (22-31) Anion Gap 11 mEq/L mEq/L (8-16) BUN 24 mg/dL H mg/dL (7-23) Creatinine 1.0 mg/dL mg/dL (0.7-1.3) Estimated GFR > 60 Glucose 122 mg/dL H mg/dL (70-100) Calcium 9.6 mg/dL mg/dL (8.5-10.4) NT-Pro-B Natriuret Pep 125 pg/mL pg/mL (0-125) Departure - Departure Disposition: Home, Routine, Self-Care Clinical Impression: Dyspnea Condition: Good Instructions: Dyspnea (ED) Additional Instructions: Follow up with primary care physician in 3-4 days for further evaluation. Return to the emergency department for increasing shortness of breath, chest pain, fevers, chills, cough, or any other concerns. Contact your health provider to arrange for home oxygen in the next 2 days. Referrals: Mervin Thorne MD [Primary Care Provider] - As per Instructions
[2017-12-08 22:26] LABS: PLATELET COUNT 248 10^3/uL (150-400)
[2017-12-08 23:29] VITALS: BP 134/76
== END 2017-12-08 23:29 | disposition home or self-care (01) ==
DX: R06.00 Dyspnea, unspecified (principal); I25.810 Atherosclerosis of coronary artery bypass graft(s) without angina pectoris; I10 Essential (primary) hypertension; Z79.82 Long term (current) use of aspirin; Z87.891 Personal history of nicotine dependence